=== PATIENT | male | born 1955 | race Caucasian/White ===

== ENCOUNTER 2020-03-14 08:23 | Emergency (ER) | payer BC, OTHER ==
[2020-03-14] MEDS ORDERED: METHYLPREDNISOLONE 125 MG INJ ONE (08:33)
[2020-03-14] MEDS ORDERED: NA CHLORIDE 0.9% 1,000 ML ONE (08:34)
[2020-03-14] MEDS ORDERED: FAMOTIDINE 20 MG/2 ML VIAL IV ONE (08:34)
[2020-03-14] MEDS ORDERED: ONDANSETRON 4 MG/2 ML VIAL ONE (08:35)
[2020-03-14 08:48] LABS: Absolute Lymphocytes (CBC) 3.8 K/uL (0.7-4.9); Basophils % 0.5 % (0-1.3); Hematocrit 44.2 % (39.6-49.0); Lymphocytes % 63.5 % (15.3-44.8); RBC Red Blood Cell Count 4.59 M/uL (4.33-5.43)
[2020-03-14 08:49] LABS: Protime INR 1.03
[2020-03-14 09:04] LABS: Albumin 3.4 g/dL (3.4-5.0); Bilirubin Direct 0.2 mg/dL (0-0.2); Bilirubin Total 0.7 mg/dL (0.2-1.0); Potassium 3.9 mmol/L (3.5-5.1); Protein, Total 6.9 g/dL (6.4-8.2)
[2020-03-14 09:59] LABS: Blood Morphology Comment NOT SEEN (NOT SEEN); Platelet Estimate ADEQ
--- NOTE | 2020-03-14 11:15 | RAD REPORT ---
EXAM DESCRIPTION: RAD - Chest Single View - 03/14/2020 8:37 am CLINICAL HISTORY: Allergic Reaction, shortness of breath COMPARISON: Portable November 2012 TECHNIQUE: AP portable chest image was obtained 03/14/2020 8:37 am . FINDINGS: No pulmonary edema or acute lung parenchymal process. Lung volumes are low which accentuat es interstitial pattern. Heart and vasculature are normal. No measurable pleural effusion and no pneu mothorax. No acute bony abnormality seen. No acute aortic findings suspected. IMPRESSION: No acute cardiopulmonary process. No substantial change from comparison.
--- NOTE | 2020-03-14 12:44 | ER ---
Nurse's Notes [facility] Name: Robert Key Age: 64 yrs Sex: Male : 1955 Arrival Date: 03/14/2020 Time: 08:27 Bed 2 Private MD: Diagnosis: Insect bite (nonvenomous) of right hand;Allergic Reaction;Hypotension Presentation: 03/14 08:27 Chief complaint: Patient states: was stung by a black wasp around 0745 today, gave sv himself an Epinephrine injection immediately after. c/o dizziness. Coronavirus screen: Proceed with normal triage. Patient denies a cough. Patient denies shortness of breath or difficulty breathing. Patient denies measured and/or subjective temperature greater than 100.4F prior to today's visit. Patient denies travel on a cruise ship or to a country the [facility] currently lists as an affected area. Patient denies contact with known and/or suspected case of COVID-19. Ebola Screen: No symptoms or risks identified at this time. Onset: The symptoms/episode began/occurred suddenly, 45 minute(s) ago. Anaphylaxis evaluation, blurry vision. Initial Sepsis Screen: Does the patient meet any 2 criteria? HR > 90 bpm. No. Patient's initial sepsis screen is negative. Does the patient have a suspected source of infection? No. Patient's initial sepsis screen is negative. Risk Assessment: Do you want to hurt yourself or someone else? Patient reports no desire to harm self or others. Onset of symptoms was March 14, 2020 at 07:45. 08:27 Method Of Arrival: Wheelchair sv 08:27 Acuity: JULIO CESAR 2 sv Triage Assessment: 08:27 General: Appears in no apparent distress. uncomfortable, well groomed, well developed, sv Behavior is calm, cooperative, appropriate for age. Pain: Complains of pain in right hand Pain began 1 hour ago. Is continuous. Neuro: Level of Consciousness is awake, alert, obeys commands, Oriented to person, place, time, situation, Moves all extremities. Full function. Respiratory: Respiratory effort is even, unlabored, Respiratory pattern is regular, symmetrical. Derm: Skin is pink, warm \T\ dry. Injury Description: Bite sustained to right middle finger caused by a wasp, was sustained 30-60 minutes ago. 08:27 EENT: Sclera/Cornea are reddened in right eye and left eye. sv Historical: - Allergies: 08:53 insects; sv 08:53 NKDA; sv - PMHx: 08:53 Hypertension; RA; GERD; sv - PSHx: 08:53 left foot; right thumb; sv - Immunization history:: Adult Immunizations up to date. - Social history:: Smoking status: . Screenin:30 Abuse screen: Denies threats or abuse. Denies injuries from another. Nutritional sv screening: No deficits noted. Tuberculosis screening: No symptoms or risk factors identified. Fall Risk None identified. Assessment: 08:30 Reassessment: Patient appears in no apparent distress at this time. Patient and/or sv family updated on plan of care and expected duration. Pain level reassessed. Patient is alert, oriented x 3, equal unlabored respirations, skin warm/dry/pink. Pt reports that he can see normal at this time. Patient states feeling better. Patient states symptoms have improved. 09:11 Reassessment: Patient appears in no apparent distress at this time. Patient and/or sv family updated on plan of care and expected duration. Pain level reassessed. Patient is alert, oriented x 3, equal unlabored respirations, skin warm/dry/pink. Patient states feeling better. Patient states symptoms have improved. 09:57 Reassessment: Patient appears in no apparent distress at this time. Pt appears to be sv sleeping at this time. Will continue to monitor. 10:47 Reassessment: Patient appears in no apparent distress at this time. Patient and/or sv family updated on plan of care and expected duration. Pain level reassessed. Patient is alert, oriented x 3, equal unlabored respirations, skin warm/dry/pink. Pt given a cup of water. Patient states feeling better. Patient states symptoms have improved. 13:04 Reassessment: Patient appears in no apparent distress at this time. Patient and/or sv family updated on plan of care and expected duration. Pain level reassessed. Patient is alert, oriented x 3, equal unlabored respirations, skin warm/dry/pink. Patient denies pain at this time. Patient states feeling better. Patient states symptoms have improved. Vital Signs: 08:27 BP 91 / 53; Pulse 100; Resp 17; Temp 98; Pulse Ox 87% on R/A; sv 08:30 BP 140 / 78; Pulse 89; Resp 16; Pulse Ox 94% on 2 lpm NC; sv 09:10 BP 152 / 97; Pulse 69; Resp 13; Pulse Ox 98% on 2 lpm NC; sv 09:30 BP 142 / 90; Pulse 72; Resp 15; Pulse Ox 97% ; sv 10:30 BP 131 / 81; Pulse 71; Resp 16; Pulse Ox 96% on R/A; sv 11:30 BP 135 / 84; Pulse 72; Resp 18; Pulse Ox 95% on R/A; sv 12:15 BP 141 / 89; Pulse 73; Resp 18; Pulse Ox 96% on R/A; sv 08:27 Pt placed on O2 \T\ 2L per NC. O2 sat up to 97%. sv ED Course: 08:27 Patient arrived in ED. em1 08:27 Doni Alberto NP is PHCP. pm1 08:27 Fermin Bardales MD is Attending Physician. pm1 08:30 Inserted saline lock: 20 gauge in right antecubital area, using aseptic technique. sv Blood collected. Flushed right antecubital with 5 ml normal saline. 08:30 Patient has correct armband on for positive identification. Bed in low position. Call sv light in reach. court recording monitor on. Pulse ox on. NIBP on. Door closed. Warm blanket given. Head of bed elevated. 08:35 EKG done, by ED staff, reviewed by Doni Alberto NP. dh3 08:35 Arm band placed on. sv 08:37 XRAY Chest (1 view) In Process Unspecified. EDMS 08:41 Amira Gordon, RN is Primary Nurse. sv 08:52 Triage completed. sv 13:04 No provider procedures requiring assistance completed. IV discontinued, intact, sv bleeding controlled, No redness/swelling at site. Pressure dressing applied. 13:05 Awaiting transportation. sv Administered Medications: 08:30 Drug: NS 0.9% 1000 ml Route: IV; Rate: 1000 ml; Site: right antecubital; sv 09:30 Follow up: Response: No adverse reaction; IV Status: Completed infusion; IV Intake: sv 1000ml 08:30 Drug: Zofran (Ondansetron) 4 mg Route: IVP; Site: right antecubital; sv 09:00 Follow up: Response: No adverse reaction sv 08:35 Drug: Pepcid 20 mg Route: IVP; Site: right antecubital; sv 09:00 Follow up: Response: No adverse reaction sv 08:37 Drug: SOLU-Medrol 125 mg Route: IVP; Site: right antecubital; sv 09:00 Follow up: Response: No adverse reaction sv Intake: 09:30 IV: 1000ml; Total: 1000ml. sv Outcome: 12:44 Discharge ordered by MD. pm1 13:04 Discharged to home ambulatory. sv 13:04 Condition: stable 13:04 Discharge instructions given to patient, Instructed on discharge instructions, follow up and referral plans. medication usage, Demonstrated understanding of instructions, follow-up care, medications, Prescriptions given X 3. 13:57 Patient left the ED. sv Signatures: Dispatcher [employer] Amira Washburn RN RN sv Martinez, Eric em1 Doni Alberto NP DURABILITY ENGINEER pm1 Tita Zamora 3
--- NOTE | 2020-03-14 12:44 | EDPHYS ---
Physician Documentation [facility] Name: Robert Key Age: 64 yrs Sex: Male : 1955 Arrival Date: 03/14/2020 Time: 08:27 Bed 2 Private MD: ED Physician Fermin Bardales HPI: 03/14 08:31 This 64 yrs old Male presents to ER via Wheelchair with complaints of pm1 Allergic Reaction, Insect Bite. 08:31 The patient presents with dizziness, itching, right hand pain where bitten by wasp. pm1 Onset: The symptoms/episode began/occurred just prior to arrival, at 07:45. Associated signs and symptoms: Pertinent negatives: abdominal pain, chest pain, headache, nausea, shortness of breath, vomiting. Possible causes: wasp. At home the patient or guardian has treated the symptoms with EpiPen, Benadryl x 2 tabs. Severity of symptoms: in the emergency department the symptoms have improved. The patient has experienced similar episodes in the past, Has had anaphylaxis from insect bites in the past. Patient bitten to right hand by black wasp at 0745. Patient took his EpiPen immediately and two Benadryl tabs. Historical: - Allergies: 08:53 insects; sv 08:53 NKDA; sv - PMHx: 08:53 Hypertension; RA; GERD; sv - PSHx: 08:53 left foot; right thumb; sv - Immunization history:: Adult Immunizations up to date. - Social history:: Smoking status: . ROS: 08:55 Constitutional: Negative for fever, chills, and weight loss, Eyes: Negative for injury, pm1 pain, redness, and discharge, ENT: Negative for injury, pain, and discharge, Neck: Negative for injury, pain, and swelling, Cardiovascular: Negative for chest pain, palpitations, and edema, Respiratory: Negative for shortness of breath, cough, wheezing, and pleuritic chest pain. 08:55 Abdomen/GI: Negative for abdominal pain, nausea, vomiting, diarrhea, and constipation, Back: Negative for injury and pain. 08:55 MS/extremity: Positive for pain, swelling, of the right hand. 08:55 Skin: Positive for itching, Negative for abscesses, cellulitis. 08:55 Neuro: Positive for dizziness, Negative for numbness, tingling, weakness. Exam: 08:55 Constitutional: This is a well developed, well nourished patient who is awake, alert, pm1 and in no acute distress. Head/Face: Normocephalic, atraumatic. 08:55 Chest/axilla: Normal chest wall appearance and motion. Nontender with no deformity. No lesions are appreciated. 08:55 Abdomen/GI: Soft, non-tender. No guarding or rebound. No evidence of tenderness throughout. Back: No spinal tenderness. No costovertebral tenderness. Full range of motion. 08:55 Eyes: Periorbital structures: appear normal, Pupils: no acute changes, Extraocular movements: no acute changes, Conjunctiva: injected, bilaterally, Lids and lashes: appear normal, bilaterally. 08:55 ENT: Mouth: is normal, no acute changes, Posterior pharynx: is normal, no acute changes. 08:55 Cardiovascular: Rate: normal, Rhythm: regular, Pulses: no pulse deficits are appreciated, Edema: is not appreciated. 08:55 Respiratory: Exam negative for acute changes, respiratory distress, shortness of breath, tachypnea. 08:55 Skin: Appearance: normal except for affected area, mild redness and swelling to dorsum of right hand. 08:55 Neuro: Exam negative for acute changes, Orientation: is normal, Mentation: is normal, Motor: is normal, moves all fours, Sensation: is normal, no obvious gross deficits. Vital Signs: 08:27 BP 91 / 53; Pulse 100; Resp 17; Temp 98; Pulse Ox 87% on R/A; sv 08:30 BP 140 / 78; Pulse 89; Resp 16; Pulse Ox 94% on 2 lpm NC; sv 09:10 BP 152 / 97; Pulse 69; Resp 13; Pulse Ox 98% on 2 lpm NC; sv 09:30 BP 142 / 90; Pulse 72; Resp 15; Pulse Ox 97% ; sv 10:30 BP 131 / 81; Pulse 71; Resp 16; Pulse Ox 96% on R/A; sv 11:30 BP 135 / 84; Pulse 72; Resp 18; Pulse Ox 95% on R/A; sv 12:15 BP 141 / 89; Pulse 73; Resp 18; Pulse Ox 96% on R/A; sv 08:27 Pt placed on O2 \T\ 2L per NC. O2 sat up to 97%. sv MDM: 08:27 Patient medically screened. pm1 09:01 Data reviewed: vital signs. pm1 12:42 Counseling: I had a detailed discussion with the patient and/or guardian regarding: the pm1 historical points, exam findings, and any diagnostic results supporting the discharge/admit diagnosis, lab results, radiology results, the need for outpatient follow up, an allergy/transitional living specialist, to return to the emergency department if symptoms worsen or persist or if there are any questions or concerns that arise at home. ED course: Patient bored without any symptoms and ready to go home. 03/14 08:30 Order name: PT-INR; Complete Time: 09:13 pm1 03/14 08:30 Order name: Basic Metabolic Panel; Complete Time: 09:10 pm03/14 08:30 Order name: CBC with Diff; Complete Time: 10:04 pm1 03/14 08:30 Order name: LFT's; Complete Time: 09:10 pm1 03/14 08:30 Order name: XRAY Chest (1 view); Complete Time: 11:33 pm1 03/14 09:59 Order name: Manual Differential; Complete Time: 10:04 EDMS 03/14 08:30 Order name: EKG; Complete Time: 08:31 pm1 03/14 08:30 Order name: Cardiac monitoring; Complete Time: 08:35 pm03/14 08:30 Order name: EKG - Nurse/Tech; Complete Time: 08:35 pm03/14 08:30 Order name: IV Saline Lock; Complete Time: 08:35 pm1 03/14 08:30 Order name: Labs collected and sent; Complete Time: 08:46 pm03/14 08:30 Order name: O2 Per Protocol; Complete Time: 08:35 pm03/14 08:30 Order name: O2 Sat Monitoring; Complete Time: 08:35 pm1 Administered Medications: 08:30 Drug: NS 0.9% 1000 ml Route: IV; Rate: 1000 ml; Site: right antecubital; sv 09:30 Follow up: Response: No adverse reaction; IV Status: Completed infusion; IV Intake: sv 1000ml 08:30 Drug: Zofran (Ondansetron) 4 mg Route: IVP; Site: right antecubital; sv 09:00 Follow up: Response: No adverse reaction sv 08:35 Drug: Pepcid 20 mg Route: IVP; Site: right antecubital; sv 09:00 Follow up: Response: No adverse reaction sv 08:37 Drug: SOLU-Medrol 125 mg Route: IVP; Site: right antecubital; sv 09:00 Follow up: Response: No adverse reaction sv Disposition: 03/14/20 12:44 Discharged to Home. Impression: Insect bite (nonvenomous) of right hand, Allergic Reaction, Hypotension. - Condition is Stable. - Discharge Instructions: Insect Bite, Epinephrine Injection. - Prescriptions for Pepcid 20 mg Oral Tablet - take 1 tablet by ORAL route every 12 hours for 10 days; 20 tablet. EpiPen 0.3 mg Injection auto- injector - inject 1 pen by INTRAMUSCULAR route as directed As needed Inject into the outer portion of the thigh, through clothing if necessary. Indicated in the emergency treatment of allergic reactions; 1 unit. Prednisone 20 mg Oral Tablet - take 3 tablet by ORAL route once daily for 5 days; 15 tablet. - Medication Reconciliation Form, Thank You Letter, Antibiotic Education, Prescription Opioid Use form. - Follow up: Emergency Department; When: As needed; Reason: Worsening of condition. Follow up: Private Physician; When: 2 - 3 days; Reason: Recheck today's complaints, Continuance of care, Re-evaluation by your physician. - Problem is new. - Symptoms have improved. Signatures: Dispatcher [employer] Amira Washburn RN RN Doni White, MULTIGRAPH OPERATOR MULTIGRAPH OPERATOR pm1 Corrections: (The following items were deleted from the chart) 12:45 12:44 03/14/2020 12:44 Discharged to Home. Impression: Insect bite (nonvenomous) of pm1 right hand. Condition is Stable. Forms are Medication Reconciliation Form, Thank You Letter, Antibiotic Education, Prescription Opioid Use. Follow up: Emergency Department; When: As needed; Reason: Worsening of condition. Follow up: Private Physician; When: 2 - 3 days; Reason: Recheck today's complaints, Continuance of care, Re-evaluation by your physician. Problem is new. Symptoms have improved. pm1 13:57 12:45 03/14/2020 12:44 Discharged to Home. Impression: Insect bite (nonvenomous) of sv right hand; Allergic Reaction; Hypotension. Condition is Stable. Forms are Medication Reconciliation Form, Thank You Letter, Antibiotic Education, Prescription Opioid Use. Follow up: Emergency Department; When: As needed; Reason: Worsening of condition. Follow up: Private Physician; When: 2 - 3 days; Reason: Recheck today's complaints, Continuance of care, Re-evaluation by your physician. Problem is new. Symptoms have improved. pm1
[2020-03-14 14:04] VITALS: TEMP 98
[2020-03-14 14:13] VITALS: BP 141/89; O2SAT 96
--- NOTE | 2020-03-15 08:54 | EKG ---
Test Date: 2020-03-14 Test Time: 08:30:22 [employer] Patrol Officer: SHIVA MEASUREMENT RESULTS: Intervals: Rate: 89 AK: 156 QRSD: 94 QT: 384 QTc: 467 [place]: P: 45 AK: 156 QRS: 3 T: 43 INTERPRETIVE STATEMENTS: Normal sinus rhythm Nonspecific ST abnormality Abnormal ECG Compared to ECG 11/11/2015 19:11:43 ST (T wave) deviation now present Electronically Signed On 03-15-20 08:52:45 CDT by Dae Gonzales
== END 2020-03-14 13:57 | disposition home or self-care (01) ==
LOC: ER 08:23
DX: S60.561A Insect bite (nonvenomous) of right hand, initial encounter (principal); T78.49XA Other allergy, initial encounter; X58.XXXA Exposure to other specified factors, initial encounter; I95.9 Hypotension, unspecified
CPT/HCPCS: 96361; 93005; 85025; 80048; 36415; 85610; 80076; 71045; 96375; 96374; 99285; J7030; J2930; J2405

== ENCOUNTER 2022-03-06 09:01 | Emergency (ER) | payer BC ==
[2022-03-06] MEDS ORDERED: ONDANSETRON 4 MG/2 ML VIAL ONE (09:20)
[2022-03-06] MEDS ORDERED: dexAMETHasone 10 MG/ML VIAL ONE (09:20)
[2022-03-06] MEDS ORDERED: FAMOTIDINE 20 MG/2 ML VIAL IV ONE (09:20)
[2022-03-06] MEDS ORDERED: NA CHLORIDE 0.9% 1,000 ML ONE (09:20)
--- NOTE | 2022-03-06 14:03 | ER ---
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 Coronavirus screen: Vaccine status: Patient reports receiving the 2nd dose of the covid vaccine. Ebola Screen: No symptoms or risks identified at this time. Onset: The symptoms/episode began/occurred acutely. Anaphylaxis evaluation, no signs or symptoms of anaphylaxis were noted. Initial Sepsis Screen: Does the patient meet any 2 criteria? No. Patient's initial sepsis screen is negative. Does the patient have a suspected source of infection? No. Patient's initial sepsis screen is negative. Risk Assessment: Do you want to hurt yourself or someone else? Patient reports no desire to harm self or others. Onset of symptoms was March 06, 2022. 09:06 Method Of Arrival: Ambulatory ph 09:06 Acuity: JULIO CESAR 3 ph Triage Assessment: 09:09 General: Appears in no apparent distress. comfortable, Behavior is calm, cooperative, ph appropriate for age. Pain: Denies pain. Neuro: Level of Consciousness is awake, alert, obeys commands, Oriented to person, place, time, situation. Cardiovascular: Capillary refill < 3 seconds in bilateral fingers Patient's skin is warm and dry. Respiratory: Airway is patent Respiratory effort is even, unlabored, Denies shortness of breath. GI: No signs and/or symptoms were reported involving the gastrointestinal system. Derm: Skin is healthy with good turgor, Skin is pink, warm \T\ dry. Musculoskeletal: Circulation, motion, and sensation intact. Range of motion: intact in all extremities. Injury Description: Bite sustained to dorsal aspect of middle phalanx of right ring finger caused by a wasp, is from insect. Historical: - Allergies: 09:08 Insects; ph 09:08 NKDA; ph - PMHx: 09:08 Hypertension; GERD; RA; ph - Immunization history:: Adult Immunizations up to date. - Social history:: Smoking status: Patient denies any tobacco usage or history of. Screenin:44 Abuse screen: Denies threats or abuse. Denies injuries from another. Nutritional ph screening: No deficits noted. Tuberculosis screening: No symptoms or risk factors identified. Fall Risk None identified. Assessment: 09:45 General: SEE TRIAGE ASSESSMENT. ph 10:43 Reassessment: Patient appears in no apparent distress at this time. Patient and/or ph family updated on plan of care and expected duration. Pain level reassessed. Patient is alert, oriented x 3, equal unlabored respirations, skin warm/dry/pink. 12:00 Reassessment: Patient appears in no apparent distress at this time. Patient and/or ph family updated on plan of care and expected duration. Pain level reassessed. Patient is alert, oriented x 3, equal unlabored respirations, skin warm/dry/pink. 13:18 Reassessment: Patient appears in no apparent distress at this time. Patient and/or ph family updated on plan of care and expected duration. Pain level reassessed. Patient is alert, oriented x 3, equal unlabored respirations, skin warm/dry/pink. 14:16 Reassessment: Patient appears in no apparent distress at this time. Patient and/or ph family updated on plan of care and expected duration. Pain level reassessed. Patient is alert, oriented x 3, equal unlabored respirations, skin warm/dry/pink. Vital Signs: 09:06 BP 123 / 67; Pulse 87; Resp 19; Temp 97.9; Pulse Ox 96% on R/A; Weight 99.79 kg; Height ph 5 ft. 9 in. (175.26 cm); 09:50 BP 127 / 73; Pulse 71; Resp 18; Pulse Ox 95% on R/A; ph 10:43 BP 127 / 78; Pulse 72; Resp 18; Pulse Ox 95% on R/A; ph 12:00 BP 129 / 80; Pulse 67; Resp 18; Pulse Ox 97% on R/A; ph 13:16 BP 142 / 83; Pulse 69; Resp 18; Pulse Ox 96% on R/A; ph 09:06 Body Mass Index 32.49 (99.79 kg, 175.26 cm) ph ED Course: 09:03 Patient arrived in ED. ds1 09:03 Troy Gatica PA is PHCP. diane 09:03 Vik Min MD is Attending Physician. diane 09:05 Inserted saline lock: 20 gauge in right forearm, using aseptic technique. ph 09:06 Sera Deal, RN is Primary Nurse. ph 09:08 Triage completed. 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 13:18 Patient has correct armband on for positive identification. Bed in low position. Call ph light in reach. Side rails up X 1. Client placed on continuous cardiac and pulse oximetry monitoring. NIBP monitoring applied. 14:14 No provider procedures requiring assistance completed. IV discontinued, intact, ph bleeding controlled, No redness/swelling at site. Pressure dressing applied. Administered Medications: 09:23 Drug: NS 0.9% 1000 ml Route: IV; Rate: 1 bolus; Site: right forearm; ph 14:15 Follow up: Response: No adverse reaction; IV Status: Completed infusion; IV Intake: ph 1000ml 14:15 Follow up: Response: No adverse reaction; IV Status: Completed infusion ph 09:24 Drug: Zofran (Ondansetron) 4 mg Route: IVP; Site: right forearm; ph 14:15 Follow up: Response: No adverse reaction ph 09:26 Drug: Pepcid (famotidine) 20 mg Route: IVP; Site: right forearm; ph 14:15 Follow up: Response: No adverse reaction ph 09:28 Drug: Decadron - Dexamethasone 10 mg Route: IVP; Site: right forearm; ph 14:14 Follow up: Response: No adverse reaction ph Medication: 13:18 VIS not applicable for this client. ph Intake: 14:15 IV: 1000ml; Total: 1000ml. ph Outcome: 14:03 Discharge ordered by . diane 14:14 Discharged to home ambulatory, with significant other. ph 14:14 Condition: good 14:14 Discharge instructions given to patient, Instructed on discharge instructions, follow up and referral plans. medication usage, Demonstrated understanding of instructions, follow-up care, medications, Prescriptions given X 2. 14:16 Patient left the ED. ph Signatures: Troy Gatica PA PA Katerin Rodriguez ds1 Sera Deal, RN RN ph
--- NOTE | 2022-03-06 14:03 | EDPHYS ---
Physician Documentation [facility] Name: Robert Key Age: 66 yrs Sex: Male : 1955 Arrival Date: 03/06/2022 Time: 09:03 Bed 3 Private MD: ED Physician Vik Min HPI: 03/06 09:03 This 66 yrs old Male presents to ER via Ambulatory with complaints of Allergic Reaction.jmm 09:03 The patient presents with localized swelling. Onset: The symptoms/episode jmm began/occurred gradually. Associated signs and symptoms: Pertinent positives: swelling. Possible causes: wasp. This is a 66-year-old male with a history of hypertension, rheumatoid arthritis the presents emerged part with complaints of swelling to his hand and face. This occurred after being stung by a wasp. Patient states he administered his EpiPen. Denies any shortness of breath or swelling to the throat.. Historical: - Allergies: 09:08 Insects; ph 09:08 NKDA; ph - PMHx: 09:08 Hypertension; GERD; RA; ph - Immunization history:: Adult Immunizations up to date. - Social history:: Smoking status: Patient denies any tobacco usage or history of. ROS: 09:03 Constitutional: Negative for fever, chills, and weight loss, Eyes: Negative for injury, jmm pain, redness, and discharge. 09:03 ENT: Negative for injury, pain, and discharge, Respiratory: Negative for shortness of breath, cough, wheezing, and pleuritic chest pain, Abdomen/GI: Negative for abdominal pain, nausea, vomiting, diarrhea, and constipation. 09:03 ENT: Positive for 09:03 Skin: Positive for swelling. 09:03 All other systems are negative. Exam: 09:03 Constitutional: This is a well developed, well nourished patient who is awake, alert, jmm and in no acute distress. Head/Face: atraumatic. Eyes: EOMI, no conjunctival erythema appreciated 09:03 Neck: Trachea midline, Supple Chest/axilla: Normal chest wall appearance and motion. Cardiovascular: Regular rate and rhythm. No edema appreciated Respiratory: Normal respirations, no respiratory distress appreciated Abdomen/GI: Non distended, soft Back: Normal ROM Skin: General appearance color normal MS/ Extremity: Moves all extremities, no obvious deformities appreciated, no edema noted to the lower extremities Neuro: Awake and alert Psych: Behavior is normal, Mood is normal, Patient is cooperative and pleasant 09:03 ENT: Posterior pharynx: is normal, No edema noted. Vital Signs: 09:06 BP 123 / 67; Pulse 87; Resp 19; Temp 97.9; Pulse Ox 96% on R/A; Weight 99.79 kg; Height ph 5 ft. 9 in. (175.26 cm); 09:50 BP 127 / 73; Pulse 71; Resp 18; Pulse Ox 95% on R/A; ph 10:43 BP 127 / 78; Pulse 72; Resp 18; Pulse Ox 95% on R/A; ph 12:00 BP 129 / 80; Pulse 67; Resp 18; Pulse Ox 97% on R/A; ph 13:16 BP 142 / 83; Pulse 69; Resp 18; Pulse Ox 96% on R/A; ph 09:06 Body Mass Index 32.49 (99.79 kg, 175.26 cm) ph MDM: 09:03 Patient medically screened. [facility] 14:02 Data reviewed: vital signs, nurses notes. Counseling: I had a detailed discussion with diane the patient and/or guardian regarding: the historical points, exam findings, and any diagnostic results supporting the discharge/admit diagnosis, the need for outpatient follow up, to return to the emergency department if symptoms worsen or persist or if there are any questions or concerns that arise at home. 03/06 09:04 Order name: Saline Lock; Complete Time: 09:12 [facility] Administered Medications: 09:23 Drug: NS 0.9% 1000 ml Route: IV; Rate: 1 bolus; Site: right forearm; ph 14:15 Follow up: Response: No adverse reaction; IV Status: Completed infusion; IV Intake: ph 1000ml 14:15 Follow up: Response: No adverse reaction; IV Status: Completed infusion ph 09:24 Drug: Zofran (Ondansetron) 4 mg Route: IVP; Site: right forearm; ph 14:15 Follow up: Response: No adverse reaction ph 09:26 Drug: Pepcid (famotidine) 20 mg Route: IVP; Site: right forearm; ph 14:15 Follow up: Response: No adverse reaction ph 09:28 Drug: Decadron - Dexamethasone 10 mg Route: IVP; Site: right forearm; ph 14:14 Follow up: Response: No adverse reaction ph Disposition Summary: 03/06/22 14:03 Discharge Ordered Location: Home [facility] Condition: Stable [facility] Diagnosis - Insect envenomation [facility] Followup: [facility] - With: Private Physician - When: 2 - 3 days - Reason: Recheck today's complaints, Continuance of care, Re-evaluation by your physician Discharge Instructions: - Discharge Summary Sheet [facility] - Bee, Wasp, or Hornet Sting, Adult [facility] Forms: - Medication Reconciliation Form [facility] - Thank You Letter [facility] - Antibiotic Education [facility] - Prescription Opioid Use [facility] Prescriptions: - Hydroxyzine HCl 25 mg Oral Tablet - take 1 tablet by ORAL route every 6 hours As needed; 30 tablet; Refills: 0, [facility] Product Selection Permitted - Prednisone 20 mg Oral Tablet - take 3 tablets by ORAL route once daily for 5 days; 15 tablet; Refills: 0, [facility] Product Selection Permitted Signatures: Troy Gatica PA PA jmm Hall, Patricia, RN RN ph
[2022-03-06 14:24] VITALS: TEMP 97.9
[2022-03-06 14:29] VITALS: BP 142/83; O2SAT 96
== END 2022-03-06 14:16 | disposition home or self-care (01) ==
LOC: ER 09:01
DX: S60.464A Insect bite (nonvenomous) of right ring finger, initial encounter (principal); T63.461A Toxic effect of venom of wasps, accidental (unintentional), initial encounter; Y92.017 Garden or yard in single-family (private) house as the place of occurrence of the external cause; Z91.038 Other insect allergy status; I10 Essential (primary) hypertension; K21.9 Gastro-esophageal reflux disease without esophagitis; M06.9 Rheumatoid arthritis, unspecified
CPT/HCPCS: J1100; J7030; J2405; J3490; 96361; 96374; 96375; 99284

== ENCOUNTER 2022-03-09 11:31 | Emergency (ER) | payer BC ==
[2022-03-09] MEDS ORDERED: dexAMETHasone 10 MG/ML VIAL ONE (12:28)
[2022-03-09] MEDS ORDERED: ONDANSETRON 4 MG/2 ML VIAL ONE (12:28)
[2022-03-09] MEDS ORDERED: FAMOTIDINE 20 MG/2 ML VIAL IV ONE (12:29)
--- NOTE | 2022-03-09 13:00 | EDPHYS ---
[facility]ation [facility] Name: Robert Key Age: 66 yrs Sex: Male : 1955 Arrival Date: 03/09/2022 Time: 11:33 Bed Treatment Private MD: ED Physician Vik Min HPI: 03/09 11:40 This 66 yrs old Male presents to ER via Ambulatory with complaints of Bee Sting, jh7 Allergic Reaction. 11:40 Onset: The symptoms/episode began/occurred just prior to arrival. Patient presents for 7 multiple bee stings to his right hand. The patient states that he is highly allergic to any insect bites, and is concerned about his allergic reaction progressing. States he was here Sunday for the same thing, and still has some prednisone at home.. Historical: - Allergies: 11:37 Insects; iw 11:37 NKDA; iw - PMHx: 11:37 GERD; Hypertension; RA; iw ROS: 11:40 Constitutional: Negative for fever, chills, and weight loss, ENT: Negative for injury, jh7 pain, and discharge, Cardiovascular: Negative for chest pain, palpitations, and edema, Respiratory: Negative for shortness of breath, cough, wheezing, and pleuritic chest pain, Abdomen/GI: Negative for abdominal pain, nausea, vomiting, diarrhea, and constipation, Skin: Negative for injury, rash, and discoloration, Neuro: Negative for headache, weakness, numbness, tingling, and seizure. 11:40 Skin: Positive for erythema, swelling, Negative for abrasions, abscesses, laceration(s), lesions. 11:40 All other systems are negative. Exam: 11:40 Constitutional: This is a well developed, well nourished patient who is awake, alert, jh7 and in no acute distress. ENT: Nares patent. No nasal discharge, no septal abnormalities noted. Tympanic membranes are normal and external auditory canals are clear. Oropharynx with no redness, swelling, or masses, exudates, or evidence of obstruction, uvula midline. Mucous membranes moist. Neck: Trachea midline, no thyromegaly or masses palpated, and no cervical lymphadenopathy. Supple, full range of motion without nuchal rigidity, or vertebral point tenderness. No Meningismus. Cardiovascular: Regular rate and rhythm with a normal S1 and S2. No gallops, murmurs, or rubs. Normal PMI, no JVD. No pulse deficits. Respiratory: Lungs have equal breath sounds bilaterally, clear to auscultation and percussion. No rales, rhonchi or wheezes noted. No increased work of breathing, no retractions or nasal flaring. Back: No spinal tenderness. No costovertebral tenderness. Full range of motion. Neuro: Awake and alert, GCS 15, oriented to person, place, time, and situation. Sensory grossly intact. Normal gait. 11:40 Skin: Bee stings present on right fourth and fifth fingers with no drainage, significant swelling, or tenderness to palpation.. Vital Signs: 11:36 BP 147 / 91; Pulse 68; Resp 16; Temp 98.6; Pulse Ox 100% on R/A; iw 12:57 BP 139 / 90; Pulse 72; Resp 18; Pulse Ox 100% on R/A; ld1 MDM: 11:40 Differential diagnosis: Allergic reaction, insect sting. Data reviewed: vital signs, [facility] nurses notes. Data interpreted: Pulse oximetry: is 100 %. Interpretation: normal. ED course: The patient symptoms resolved after medication administration. He remained stable throughout his ER visit. He still has some leftover prednisone from his last visit, and will continue to use at home. If symptoms return, or if he develops any new concerning symptoms, he will return to the ER immediately. Patient understood the plan of care.. 11:54 Patient medically screened. [facility] 13:00 Counseling: I had a detailed discussion with the patient and/or guardian regarding: the [facility] historical points, exam findings, and any diagnostic results supporting the discharge/admit diagnosis, to return to the emergency department if symptoms worsen or persist or if there are any questions or concerns that arise at home. Administered Medications: 12:29 Drug: Decadron - Dexamethasone 10 mg Route: IVP; Site: left antecubital; iw 12:45 Follow up: Response: No adverse reaction iw 12:29 Drug: Pepcid (famotidine) 20 mg Route: IVP; Site: left antecubital; iw 13:00 Follow up: Response: No adverse reaction iw 12:29 Drug: Zofran (Ondansetron) 4 mg Route: IVP; Site: left antecubital; iw 13:00 Follow up: Response: No adverse reaction iw Disposition Summary: 05/19/22 13:00 Discharge Ordered Location: Home [facility] Problem: new [facility] Symptoms: have improved [facility] Condition: Stable [facility] Diagnosis - Insect bite (nonvenomous) of fingers [facility] - Allergic urticaria [facility] Followup: [facility] - With: Private Physician - When: 2 - 3 days - Reason: Recheck today's complaints Discharge Instructions: - Discharge Summary Sheet [facility] - Hives 7 - Angioedema [facility] Forms: - Medication Reconciliation Form [facility] - Thank You Letter [facility] Signatures: Danielle Chu RN RN iw Bridget Smith, CARI BROOKSP [facility] Corrections: (The following items were deleted from the chart) 16:31 16:29 Skin: Bee stings present on right fourth and fifth fingers with no drainage, [facility] significant swelling, or tenderness to palpation.. [facility] 16:31 16:29 Constitutional: This is a well developed, well nourished patient who is awake, [facility] alert, and in no acute distress. ENT: Nares patent. No nasal discharge, no septal abnormalities noted. Tympanic membranes are normal and external auditory canals are clear. Oropharynx with no redness, swelling, or masses, exudates, or evidence of obstruction, uvula midline. Mucous membranes moist. Neck: Trachea midline, no thyromegaly or masses palpated, and no cervical lymphadenopathy. Supple, full range of motion without nuchal rigidity, or vertebral point tenderness. No Meningismus. Cardiovascular: Regular rate and rhythm with a normal S1 and S2. No gallops, murmurs, or rubs. Normal PMI, no JVD. No pulse deficits. Respiratory: Lungs have equal breath sounds bilaterally, clear to auscultation and percussion. No rales, rhonchi or wheezes noted. No increased work of breathing, no retractions or nasal flaring. Back: No spinal tenderness. No costovertebral tenderness. Full range of motion. Neuro: Awake and alert, GCS 15, oriented to person, place, time, and situation. Sensory grossly intact. Normal gait. [facility] 16:33 11:40 Counseling: I had a detailed discussion with the patient and/or guardian [facility] regarding: the historical points, exam findings, and any diagnostic results supporting the discharge/admit diagnosis, to return to the emergency department if symptoms worsen or persist or if there are any questions or concerns that arise at home, jh7
--- NOTE | 2022-03-09 13:00 | ER ---
Nurse's Notes [facility] Name: Robert Key Age: 66 yrs Sex: Male : 1955 Arrival Date: 03/09/2022 Time: 11:33 Bed Treatment Private MD: Diagnosis: Insect bite (nonvenomous) of fingers;Allergic urticaria Presentation: 03/09 11:36 Chief complaint: Patient states: got stung by a bee on his right hand around 11 today iw and gave himself an injection with epi pen, was seen here Sunday for same reason , now c/o dizziness and feeling a little flush. Coronavirus screen: At this time, the client does not indicate any symptoms associated with coronavirus-19. Ebola Screen: Patient negative for fever greater than or equal to 101.5 degrees Fahrenheit, and additional compatible Ebola Virus Disease symptoms Patient denies exposure to infectious person. Patient denies travel to an Ebola-affected area in the 21 days before illness onset. No symptoms or risks identified at this time. Onset: The symptoms/episode began/occurred 30 minute(s) ago. Anaphylaxis evaluation, no signs or symptoms of anaphylaxis were noted. Initial Sepsis Screen: Does the patient meet any 2 criteria? No. Patient's initial sepsis screen is negative. Does the patient have a suspected source of infection? No. Patient's initial sepsis screen is negative. Risk Assessment: Do you want to hurt yourself or someone else? Patient reports no desire to harm self or others. Onset of symptoms was March 09, 2022. 11:36 Method Of Arrival: Ambulatory iw 11:36 Acuity: JULIO CESAR 3 iw Triage Assessment: 12:00 General: Behavior is calm, cooperative. iw 13:31 General: Appears in no apparent distress. iw Historical: - Allergies: 11:37 Insects; iw 11:37 NKDA; iw - PMHx: 11:37 GERD; Hypertension; RA; iw Screenin:57 Abuse screen: Denies threats or abuse. Denies injuries from another. Nutritional ld1 screening: No deficits noted. Tuberculosis screening: No symptoms or risk factors identified. Fall Risk None identified. Assessment: 12:57 Reassessment: See triage assessment. Pain: Denies pain. Respiratory: Airway is patent ld1 Respiratory effort is even, unlabored, Breath sounds are clear bilaterally. 13:30 Reassessment: Patient appears in no apparent distress at this time. Patient and/or iw family updated on plan of care and expected duration. Pain level reassessed. Patient is alert, oriented x 3, equal unlabored respirations, skin warm/dry/pink. Vital Signs: 11:36 BP 147 / 91; Pulse 68; Resp 16; Temp 98.6; Pulse Ox 100% on R/A; iw 12:57 BP 139 / 90; Pulse 72; Resp 18; Pulse Ox 100% on R/A; ld1 ED Course: 11:33 Patient arrived in ED. as 11:37 Triage completed. iw 11:43 Bridget Smith FNP is [facility] 11:43 Vik Min MD is Attending Physician. [facility] 12:15 Danielle Chu, RN is Primary Nurse. iw 12:57 Patient has correct armband on for positive identification. Bed in low position. Call ld1 light in reach. Side rails up X2. youth nutritional monitor on. Pulse ox on. NIBP on. Door closed. Noise minimized. Warm blanket given. 12:57 No provider procedures requiring assistance completed. Inserted saline lock: 22 gauge ld1 in left antecubital area, using aseptic technique. 13:30 IV discontinued, intact, bleeding controlled, No redness/swelling at site. Pressure iw dressing applied. Administered Medications: 12:29 Drug: Decadron - Dexamethasone 10 mg Route: IVP; Site: left antecubital; iw 12:45 Follow up: Response: No adverse reaction iw 12:29 Drug: Pepcid (famotidine) 20 mg Route: IVP; Site: left antecubital; iw 13:00 Follow up: Response: No adverse reaction iw 12:29 Drug: Zofran (Ondansetron) 4 mg Route: IVP; Site: left antecubital; iw 13:00 Follow up: Response: No adverse reaction iw Medication: 12:57 VIS not applicable for this client. ld1 Outcome: 13:00 Discharge ordered by . [facility] 13:31 Discharged to home ambulatory. iw 13:31 Condition: good 13:31 Discharge instructions given to patient, Instructed on discharge instructions, follow up and referral plans. Demonstrated understanding of instructions, follow-up care, medications. 13:31 Patient left the ED. iw Signatures: Santiago, LaurieDanielle Ward, RN RN iw Natalie Uribe RN RN ld1 Bridget Smith, CHANGE PERSON CHANGE PERSON jh7
[2022-03-09 14:02] VITALS: TEMP 98.6; O2SAT 100
[2022-03-09 14:04] VITALS: BP 139/90
== END 2022-03-09 13:31 | disposition home or self-care (01) ==
LOC: ER 11:31
DX: S60.466A Insect bite (nonvenomous) of right little finger, initial encounter (principal); L50.0 Allergic urticaria; S60.361A Insect bite (nonvenomous) of right thumb, initial encounter; I10 Essential (primary) hypertension; Z91.038 Other insect allergy status
CPT/HCPCS: 96375; 96374; 99284; J1100; J2405; J3490

== ENCOUNTER 2024-04-12 12:32 | Emergency (ER) | payer MEDICAID ==
[2024-04-12 13:23] LABS: Absolute Basophils 0.1 K/uL (0-0.5); Absolute Eosinophils 0.2 K/uL (0-0.5); Absolute Lymphocytes (CBC) 2.5 K/uL (0.7-4.9); Absolute Monocytes 1.2 K/uL (0.1-1.3); Absolute Neutrophil 4.1 K/uL (1.8-8.0); Basophils % 1.2 % (0-1.3); Hematocrit 33.4 % (39.6-49.0); Hemoglobin 11.8 g/dL (13.6-17.9); Lymphocytes % 31.2 % (15.3-44.8); MCH 34.3 pg (27.0-35.0); MCHC 35.3 g/dL (32.0-36.0); MCV 97.3 fL (80-100); MPV 6.9 fL (7.6-11.3); Monocytes % 14.6 % (3.3-12.3); Nucleated Red Blood Cells % 0.1 % (0-0); Platelets 263 thou/uL (152-406); RBC Red Blood Cell Count 3.43 M/uL (4.33-5.43)
[2024-04-12 13:42] LABS: Albumin 2.7 g/dL (3.4-5.0); Albumin/Globulin Ratio 0.6 (1.1-1.8); Anion Gap 6.2 mEq/L (5.0-15.0); Bilirubin Total 0.6 mg/dL (0.2-1.0); Globulin 4.2 g/dL (2.3-3.5); Potassium 3.2 mEq/L (3.5-5.1); Protein, Total 6.9 g/dL (6.4-8.2)
--- NOTE | 2024-04-12 15:13 | RAD REPORT ---
EXAM DESCRIPTION: CT - Abdomen Pelvis W Contrast - 04/12/2024 2:20 pm CLINICAL HISTORY: rectal bleeding history of UC COMPARISON: No comparisons TECHNIQUE: Thin cut axial CT imaging of the abdomen and pelvis was performed following intravenous a dministration of iodinated contrast. Multiplanar reformats were generated and reviewed. All CT scans are performed using dose optimization technique as appropriate and may include automated exposure control or mA/KV adjustment according to patient size. FINDINGS: No suspicious findings in the lung bases. The liver shows diffuse parenchymal hypoattenuation suggesting steatosis. Adrenal glands, spleen, and pancreas show no suspicious findings. Gallbladder and biliary tree are also without suspicious findi ng. Symmetric renal function is seen with no hydronephrosis or suspicious renal mass. Moderate hiatal hernia. No dilated bowel loops. Colonic diverticulosis. Proximal ascending colon foca l inflammatory changes with fat stranding around an inflamed diverticulum. No extraluminal gas or flu id collections. No free air or free fluid. No hernia, mass or bulky lymphadenopathy. The urinary blad manolo is without significant finding. No suspicious bony findings. IMPRESSION: Findings of proximal descending colon acute diverticulitis, without evidence of complica tions. Diffuse hepatic steatosis. The findings were communicated to on 04/12/2024 at 15:08 hours.
--- NOTE | 2024-04-12 15:39 | EDPHYS ---
Physician Documentation [facility] Name: Robert eKy Age: 68 yrs Sex: Male : 1955 Arrival Date: 04/12/2024 Time: 12:32 Bed 20 Private MD: ED Physician Sai Grijalva HPI: 04/12 15:58 This 68 yrs old Male presents to ER via Ambulatory with complaints of Bloody Stools - rt diarrhea. 15:58 Patient presents to the ED with 2 episodes of bloody stools. Patient had diarrhea rt yesterday with bright red blood. States that a more formed stool today with bright red blood. Denies any pain, straining. Denies nausea, vomiting. Denies other acute complaints, symptoms are moderate in severity, no other aggravating or alleviating factors.. Historical: - Allergies: 12:48 NKDA; db - PMHx: 12:48 GERD; Hypertensive disorder; Hypertension; RA; db - PSHx: 12:48 foot-right and left; db - Immunization history:: Adult Immunizations unknown. - Infectious Disease History:: Denies. - Social history:: Smoking status: Patient denies any tobacco usage or history of. - Family history:: not pertinent. ROS: 15:58 Constitutional: Negative for fever, chills, and weight loss, Cardiovascular: Negative rt for chest pain, palpitations, and edema, Respiratory: Negative for shortness of breath, cough, wheezing, and pleuritic chest pain, MS/Extremity: Negative for injury and deformity, Skin: Negative for injury, rash, and discoloration, Neuro: Negative for headache, weakness, numbness, tingling, and seizure, 15:58 Abdomen/GI: Positive for rectal bleeding, Negative for abdominal pain, nausea and vomiting, Exam: 15:58 Constitutional: This is a well developed, well nourished patient who is awake, alert, rt and in no acute distress. Head/Face: Normocephalic, atraumatic. Chest/axilla: Normal chest wall appearance and motion. Nontender with no deformity. No lesions are appreciated. Cardiovascular: Regular rate and rhythm with a normal S1 and S2. No gallops, murmurs, or rubs. Normal PMI, no JVD. No pulse deficits. Respiratory: Lungs have equal breath sounds bilaterally, clear to auscultation and percussion. No rales, rhonchi or wheezes noted. No increased work of breathing, no retractions or nasal flaring. Abdomen/GI: Soft, non-tender, with normal bowel sounds. No distension or tympany. No guarding or rebound. No evidence of tenderness throughout. Skin: Warm, dry with normal turgor. Normal color with no rashes, no lesions, and no evidence of cellulitis. MS/ Extremity: Pulses equal, no cyanosis. Neurovascular intact. Full, normal range of motion. Neuro: Awake and alert, GCS 15, oriented to person, place, time, and situation. Cranial nerves II-XII grossly intact. Motor strength 5/5 in all extremities. Sensory grossly intact. Cerebellar exam normal. Normal gait. Vital Signs: 12:47 BP 122 / 71; Pulse 70; Resp 18; Temp 97.7; Pulse Ox 98% ; Weight 92.99 kg; Height 5 ft. db 7 in. ; 13:54 BP 121 / 71; Pulse 65; Resp 18; Pulse Ox 99% ; nj1 15:03 BP 130 / 79; Pulse 63; Resp 17; Pulse Ox 99% ; nj1 16:09 BP 129 / 78; Pulse 64; Resp 18; Pulse Ox 98% ; nj1 12:47 Body Mass Index 32.11 (92.99 kg, 170.18 cm) db MDM: 12:53 Patient medically screened. rt 15:58 Differential Diagnosis Diverticulitis, ulcerative colitis, colitis. Data reviewed: rt vital signs, nurses notes. Consideration of Admission/Observation Escalation of care including admission/observation considered. Patient with stable vital signs, normal H\T\H. Diverticulitis, uncomplicated seen on CT scan. Patient has no pain, nausea, is p.o. tolerant. Patient is comfortable discharge. Will treat patient with antibiotics as an outpatient, strict return precautions were discussed. There is no melena, coffee-ground emesis to suggest upper GI bleed. Care significantly affected by the following chronic conditions: Ulcerative colitis. Counseling: I had a detailed discussion with the patient and/or guardian regarding the historical points, exam findings, and any diagnostic results supporting the discharge/admit diagnosis, lab results, radiology results, the need for outpatient follow up, to return to the emergency department if symptoms worsen or persist or if there are any questions or concerns that arise at home. Response to treatment: the patient's symptoms have markedly improved after treatment. 04/12 13:02 Order name: CBC with Diff; Complete Time: 13:55 rt 04/12 13:02 Order name: CMP; Complete Time: 13:55 rt 04/12 13:02 Order name: Lipase; Complete Time: 13:55 rt 04/12 13:02 Order name: CT Abd/Pelvis - IV Contrast Only; Complete Time: 15:15 rt 04/12 13:02 Order name: IV Saline Lock; Complete Time: 13:15 rt 04/12 13:02 Order name: Labs collected and sent; Complete Time: 13:15 rt Administered Medications: 16:01 Drug: Amoxicillin-Clavulanate PO 875 mg PO once Route: PO; nj1 Disposition Summary: 04/12/24 15:38 Discharge Ordered Notes: Location: Home rt Problem: new rt Symptoms: are unchanged rt Condition: Stable rt Diagnosis - Uncomplicated diverticulitis rt Followup: rt - With: Private Physician - When: 5 - 6 days - Reason: Discharge Instructions: - Discharge Summary Sheet rt - Diverticulitis rt Forms: - Medication Reconciliation Form rt - Antibiotic Education rt - Prescription Opioid Use rt - Patient Portal Instructions rt - Leadership Thank You Letter rt Prescriptions: - Augmentin 875-125 mg Oral Tablet - take 1 tablet ORAL route every 12 hours for 10 days; 20 tablet; Refills: 0, rt Product Selection Permitted Signatures: Dispatcher [employer] Vanessa Hester RN RN Sai Goodrich MD MD rt Hyun Matos RN RN nj1 Corrections: (The following items were deleted from the chart) 12:48 12:48 Allergies: Insects; edmund shaffer
--- NOTE | 2024-04-12 15:39 | ER ---
Nurse's Notes [facility] Name: Robert Key Age: 68 yrs Sex: Male : 1955 Arrival Date: 04/12/2024 Time: 12:32 Bed 20 Private MD: Diagnosis: Uncomplicated diverticulitis Presentation: 04/12 12:47 Chief complaint: Patient states: BLOODY DIARRHEA STARTED LAST NIGHT AT 11 PM. STATES 3 db EPISODES OF DIARRHEA. Coronavirus screen: Client denies travel out of the [place] in the last 14 days. At this time, the client does not indicate any symptoms associated with coronavirus-19. Ebola Screen: Patient negative for fever greater than or equal to 101.5 degrees Fahrenheit, and additional compatible Ebola Virus Disease symptoms Patient denies exposure to infectious person. Patient denies travel to an Ebola-affected area in the 21 days before illness onset. No symptoms or risks identified at this time. Initial Sepsis Screen: Does the patient meet any 2 criteria? No. Patient's initial sepsis screen is negative. Does the patient have a suspected source of infection? No. Patient's initial sepsis screen is negative. Risk Assessment: Do you want to hurt yourself or someone else? Patient reports no desire to harm self or others. Onset of symptoms was April 12, 2024. 12:47 Method Of Arrival: Ambulatory db 12:47 Acuity: JULIO CESAR 3 db Triage Assessment: 12:48 General: Appears in no apparent distress. comfortable, Behavior is calm, cooperative. db Pain: Denies pain. Neuro: Level of Consciousness is awake, alert, obeys commands, Oriented to person, place, time, situation, Speech is normal. GI: Reports diarrhea, bloody stool. Historical: - Allergies: 12:48 NKDA; db - PMHx: 12:48 GERD; Hypertensive disorder; Hypertension; RA; db - PSHx: 12:48 foot-right and left; db - Immunization history:: Adult Immunizations unknown. - Infectious Disease History:: Denies. - Social history:: Smoking status: Patient denies any tobacco usage or history of. - Family history:: not pertinent. Screenin:20 [facility] ED Fall Risk Assessment (Adult) History of falling in the last 3 months, nj1 including since admission No falls in past 3 months (0 pts) Confusion or Disorientation No (0 pts) Intoxicated or Sedated No (0 pts) Impaired Gait No (0 pts) Mobility Assist Device Used No (0 pt) Altered Elimination No (0 pt) Score/Fall Risk Level 0 - 2 = Low Risk Oriented to surroundings, Maintained a safe environment, Hourly rounding (assess needs \T\ fall precautionary measures) done. 13:20 Abuse screen: Denies threats or abuse. Denies injuries from another. Nutritional nj1 screening: No deficits noted. Tuberculosis screening: No symptoms or risk factors identified. Assessment: 13:20 General: Appears in no apparent distress. comfortable, Behavior is calm, cooperative, nj1 appropriate for age. 13:20 Pain: Denies pain. Neuro: Level of Consciousness is awake, alert, obeys commands, nj1 Oriented to person, place, time, situation. Cardiovascular: Patient's skin is warm and dry. Respiratory: Airway is patent Respiratory effort is even, unlabored. GI: Reports diarrhea, bloody stool. 13:54 Reassessment: Patient appears in no apparent distress at this time. Patient and/or nj1 family updated on plan of care and expected duration. Pain level reassessed. Patient is alert, oriented x 3, equal unlabored respirations, skin warm/dry/pink. 15:03 Reassessment: Patient appears in no apparent distress at this time. Patient and/or nj1 family updated on plan of care and expected duration. Pain level reassessed. Patient is alert, oriented x 3, equal unlabored respirations, skin warm/dry/pink. 16:10 Reassessment: Patient appears in no apparent distress at this time. Patient is alert, nj1 oriented x 3, equal unlabored respirations, skin warm/dry/pink. Vital Signs: 12:47 BP 122 / 71; Pulse 70; Resp 18; Temp 97.7; Pulse Ox 98% ; Weight 92.99 kg; Height 5 ft. db 7 in. ; 13:54 BP 121 / 71; Pulse 65; Resp 18; Pulse Ox 99% ; nj1 15:03 BP 130 / 79; Pulse 63; Resp 17; Pulse Ox 99% ; nj1 16:09 BP 129 / 78; Pulse 64; Resp 18; Pulse Ox 98% ; nj1 12:47 Body Mass Index 32.11 (92.99 kg, 170.18 cm) db ED Course: 12:35 Patient arrived in ED. im 12:42 Sai Grijalva MD is Attending Physician. rt 12:48 Triage completed. db 12:48 Arm band placed on Patient placed in an exam room. db 13:15 CBC with Diff Sent. bc6 13:15 CMP Sent. bc6 13:15 Lipase Sent. bc6 13:15 Initial lab(s) drawn, by me, sent to lab. Inserted saline lock: 20 gauge in right bc6 antecubital area, using aseptic technique. Blood collected. 13:18 Hyun Matos, RN is Primary Nurse. nj1 13:52 Patient has correct armband on for positive identification. Bed in low position. Call nj1 light in reach. Provided Education on: call light, fall precautions. 14:22 CT Abd/Pelvis - IV Contrast Only In Process Unspecified. EDMS 16:10 No provider procedures requiring assistance completed. IV discontinued, intact, nj1 bleeding controlled, Pressure dressing applied. Administered Medications: 16:01 Drug: Amoxicillin-Clavulanate PO 875 mg PO once Route: PO; nj1 Medication: 16:10 VIS not applicable for this client. nj1 Outcome: 15:38 Discharge ordered by MD. rt 16:10 Discharged to home ambulatory, with significant other, nj1 16:10 Condition: stable 16:10 Discharge instructions given to patient, Instructed on discharge instructions, follow up and referral plans. medication usage, Demonstrated understanding of instructions, follow-up care, medications, Prescriptions given X 1, 16:10 Patient left the ED. nj1 Signatures: Dispatcher [employer] EDMS Vanessa Sylvester RN RN db Sai Girjalva MD MD rt [facility] Hyun Matos, ARTHUR RN nj1 Annie Brewer im Corrections: (The following items were deleted from the chart) 12:48 12:48 Allergies: Insects; db db 15:05 15:03 Pulse 63bpm; Resp 17bpm; Pulse Ox 99%; nj1 nj1
[2024-04-12] MEDS ORDERED: AMOX/K CLAV 875 MG TAB ONE (15:59)
[2024-04-12 16:16] VITALS: TEMP 97.7; O2SAT 98
[2024-04-12 16:31] VITALS: BP 129/78
== END 2024-04-12 16:10 | disposition home or self-care (01) ==
LOC: ER 12:32
DX: K57.32 Diverticulitis of large intestine without perforation or abscess without bleeding (principal)
CPT/HCPCS: 85025; 36415; 83690; 80053; 74177; 99284; Q9967

== ENCOUNTER 2024-04-14 09:21 | Emergency (ER) | payer MEDICAID ==
--- OUTSIDE RECORDS SUMMARY | 2024-04-14 09:27 | XMS REPORT | Continuity of Care Document ---
Author Name Unknown Address [address] [facility] [address] [place] [address] [facility] Address [address] [facility] 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 Role Phone ZELALEM GASTON Attending Clinician Unavailable FREDA NICHOLSON Attending Clinician Unava MELLISA Veliz Attending Clinician Unavailable VF45 Attending Clinician Unavailable DINO ZAMUDIO Attending Clinician Unavailable AISHWARYA LORENZ Attending Clinician Unavailable TIKA WHARTON Attending Clinician Unavail able LUCITA VELAZQUEZ Attending Clinician Unavailable MARIA ELENA ENRIQUEZ Attending Clinician Unavailable LAB47 Attending Clinician Unavailable RADHA THOMAS Attending Clinician Unavailable LAB90 Attending Clinician Unavailable GISELE ZEPEDA Attending Clinician Unavailable EASTON ROSS Attending Clinician Unavailable RADIOLOGY, DEPT Attending Clinician Unavailable ZAYNAB SANTOS Attending Clinician Unavailable TRED45 Attending Clinician Unavailable BECKI DIOR Attending Clinician Unavailable NICOLASA DOUGHERTY Attending Clinician Unavailable [facility] Attending Clinician UnavailREGIS Murphy Attending Clinician Unavailable VF2 Attending Clinician Unavailable TOMOGRAPHY, [facility] Attending Cl inician Unavailable LAB59 Attending Clinician Unavailable GUILLAUME VAZQUEZ Attending Clinician Unavailable JUDITH URIBE Attending Clinician Unavailable ALYSSA PARKS Attending Clinician Unavailab le TESTING, [facility] TRI GASTELUM Attending Clinicia debra Unavailable LAB45 Attending Clinician Unavailable DEVAN REYES Attending Clinician Unavailable Cynthia Santizo NP Attending Clinician [phone] Yamilka Rand MD Attending Clinician [phone] Laisha Mccabe MD Attending Clinician [phone] CYNTHIA SANTIZO Attending Clinician Unavailable Edionwe MD, [facility] Admitting Clinician Payers Payer Name Policy Type Policy Number Effective Date Expirati on Date Source [employer] [facility] 7 [id number] 2022 00:00:00 Problems Condition Name Condition Details Condition Category Status Onset Date Resolution Date Last Treatment Date Treating Clinician Comments Source Nail discolorat ion Nail discolorat ion Disease Active 5- 00:00: 00 Wen Seybold - Externa l Ulcerative colitis without complicati ons, unspecifie d location (multi HCC) Ulcerative colitis without complicati ons, unspecifie d location (multi HCC) Disease Active - 00:00: 00 Wen Seybold - Externa l History of ulcerative colitis History of ulcerative colitis Disease Active 2-20 00:00: 00 Wen Seybold - Externa l Rheumatoid arthritis (multi HCC) Rheumatoid arthritis (multi HCC) Disease Active - 00:00: 00 Wen Seybold - Externa l Primary hypertensi on Primary hypertensi on Disease Active 11-02 00:00: 00 Wen Seybold - Externa l 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) 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) Disease Active 11-02 00:00: 00 Wen Seybold - Externa l Hypotensio n Hypotensio n Disease Active 4-03 00:00: 00 [facility] HTN (hypertens ion) HTN (hypertens ion) Disease Active 2013-10 00:00: 00 [facility] Long-term use of immunosupp ressant medication Long-term use of immunosupp ressant medication Disease Active 2013-10 00:00: 00 [facility] Rheumatoid arthritis, adult Rheumatoid arthritis, adult Disease Active 2013-10 00:00: 00 [facility] Ulcerative colitis Ulcerative colitis Disease Active 11-03 00:00: 00 [facility] Vitamin D deficiency Vitamin D deficiency Disease Active 11-03 00:00: 00 [facility] Allergies, Adverse Reactions, Alerts Allergy Name Allergy Type Status Severity Reaction(s) Onset Date Inactive Date Treating Clinician Comments Source NO KNOWN ALLERGIE S Drug Class Active [facility] Social History Social Habit Start Date Stop Date Quantity Comments Source Exposure to SARS-CoV-2 (event) Not sure [facility] Gender identity Ariadna Myrick - External Sexual orientation Dionicio Myrick - External Alcoholic beverage intake 2024-03-14 00:00:00 2024-03-14 00:00:00 .29 /d Wen Hawkold - External Alcohol intake 2024-01-04 00:00:00 2024-01-04 00:00:00 .29 /d Wen Hawkold - External Alcohol Comment 2023-10-19 00:00:00 2023-10-19 00:00:00 daily Wen Myrick - External History of Social function 2023-07-12 00:00:00 2023-07-12 00:00:00 Wen Myrick - External Tobacco use and exposure 2022-11-02 00:00:00 2022-11-02 00:00:00 Smokeless tobacco non-user Wen Ramez - External Sex assigned at 1955 00:00:00 1955 00:00:00 Wen Myrick - External Smoking Status Start Date Stop Date Source Never smoked tobacco Wenchristopher Myrick - External Unknown if ever smoked [facility] Medications Ordered Medication Name Filled Medication Name Start Date Stop Date Current Medication? Ordering Clinician Indication Dosage Frequency Signature (SIG) Comments Components Source Potassium Gluconate 550 MG oral Tablet 04-12 10:23: 43 Yes 1{tbl} Take 1 tablet by mouth daily Wen auguste Zinc 50 MG oral Tablet 04-12 10:23: 43 Yes 1{tbl} Take 1 tablet by mouth daily Wen auguste Cholecalcif demetria-Vitami n C (VITAMIN D3-VITAMIN C OR) 04-12 10:23: 43 Yes 1{tbl} Take 1 tablet by mouth daily Wen auguste Aspirin 81 MG oral Tablet Delayed Response 2024-0 6-22 10:23: 43 Yes 81mg Take 1 tablet (81 mg total) by mouth daily. Wen auguste Carvedilol 3.125 MG oral Tablet 03-19 00:00: 00 Yes [id number] 3.125mg Take 1 tablet (3.125 mg total) by mouth in the morning and 1 tablet (3.125 mg total) in the evening. Take with meals. Wen auguste Sulfasalazi ne 500 MG oral Tablet 02-26 00:00: 00 Yes [id number] 500mg Take 1 tablet (500 mg total) by mouth 2 times daily. Wen auguste Hydroxychlo roquine Sulfate 200 MG oral Tablet 02-26 00:00: 00 Yes [id number] 300mg Take 1.5 tablets (300 mg total) by mouth daily. Wen auguste Ammonium Lactate 12 % apply externally Lotion 02-26 00:00: 00 Yes [id number] 1{appli cation} Apply 1 Applicatio n topically 2 times daily. Wen auguste Potassium Gluconate 550 MG oral Tablet 01-13 08:58: 51 Yes 1{tbl} Take 1 tablet by mouth daily Wen auguste Zinc 50 MG oral Tablet 01-13 08:58: 51 Yes 1{tbl} Take 1 tablet by mouth daily Wen auguste FIBER OR 01-13 08:58: 51 Yes 1{capsu le} Take 1 capsule by mouth daily Wen auguste Aspirin 81 MG oral Tablet Delayed Response 01-13 08:58: 51 Yes 81mg Take 1 tablet (81 mg total) by mouth daily. Wen auguste Pantoprazol e Sodium 40 MG oral Tablet Delayed Response 01-12 00:00: 00 Yes 40mg Take 1 tablet (40 mg total) by mouth daily. Wen auguste Carvedilol 3.125 MG oral Tablet 12-16 00:00: 00 Yes [id number] TAKE ONE (1) TABLET(S) BY MOUTH TWICE A DAY (MORNING AND EVENING) WITH MEALS. Wen auguste Potassium Gluconate 550 MG oral Tablet 11-29 09:57: 32 Yes 1{tbl} Take 1 tablet by mouth daily Wen auguste Zinc 50 MG oral Tablet 11-29 09:57: 32 Yes 1{tbl} Take 1 tablet by mouth daily Wen auguste FIBER OR 11-29 09:57: 32 Yes 1{capsu le} Take 1 capsule by mouth daily Wen auguste Aspirin 81 MG oral Tablet Delayed Response 11-29 09:57: 32 Yes 81mg Take 1 tablet (81 mg total) by mouth daily. Wen auguste Potassium Gluconate 550 MG oral Tablet 11-07 10:31: 04 Yes 1{tbl} Take 1 tablet by mouth daily Wen auguste Zinc 50 MG oral Tablet 11-07 10:31: 04 Yes 1{tbl} Take 1 tablet by mouth daily Wen auguste FIBER OR 11-07 10:31: 04 Yes 1{capsu le} Take 1 capsule by mouth daily Wen auguste Aspirin 81 MG oral Tablet Delayed Response 11-07 10:31: 04 Yes 81mg Take 1 tablet (81 mg total) by mouth daily. Wen auguste Hydroxychlo roquine Sulfate 200 MG oral Tablet 11-07 00:00: 00 02-26 00:00 :00 No [id number] 300mg Take 1.5 tablets (300 mg total) by mouth daily. Wen auguste Sulfasalazi ne 500 MG oral Tablet 11-07 00:00: 00 02-26 00:00 :00 No [id number] 9109 500mg Take 1 tablet (500 mg total) by mouth 2 times daily. Wen auguste Potassium Gluconate 550 MG oral Tablet 10-23 13:56: 30 Yes 1{tbl} Take 1 tablet by mouth daily Wen auguste Zinc 50 MG oral Tablet 10-23 13:56: 30 Yes 1{tbl} Take 1 tablet by mouth daily Wen Yap l FIBER OR 10-23 13:56: 08 Yes 1{capsu le} Take 1 capsule by mouth daily Wen auguste Aspirin 81 MG oral Tablet Delayed Response 10-23 13:56: 08 Yes 81mg Take 1 tablet (81 mg total) by mouth daily. Wen auguste Potassium Gluconate 550 MG oral Tablet 2022-10 08:22: 14 Yes 1{tbl} Take 1 tablet by mouth daily Wen auguste Zinc 50 MG oral Tablet 2022-10 08:22: 14 Yes 1{tbl} Take 1 tablet by mouth daily Wen auguste FIBER OR 2022-10 08:22: 14 Yes 1{capsu le} Take 1 capsule by mouth daily Wen auguste Aspirin 81 MG oral Tablet Delayed Response 2022-10 08:21: 06 Yes 81mg Take 1 tablet (81 mg total) by mouth daily. Wen auguste methylPREDN ISolone 4 MG oral Tablet Therapy Pack 2022-10 00:00: 00 Yes [id number] 1{destinee} Take 1 destinee by mouth See Admin Instructio ns Use as directed. Wen auguste Benzonatate (Tessalon Perles) 100 MG oral Capsule 2022-10 00:00: 00 Yes [id number] 100mg [id number] 3D Take 1 capsule (100 mg total) by mouth 3 times daily as needed for cough. Wen auguste Losartan Potassium (COZAAR) 100 MG oral Tablet 2022-10 00:00: 00 Yes [id number] 100mg TAKE ONE (1) TABLET(S) BY MOUTH DAILY. Wen auguste Carvedilol 3.125 MG oral Tablet 2022-10 00:00: 00 Yes [id number] 3.125mg Take 1 tablet (3.125 mg total) by mouth in the morning and 1 tablet (3.125 mg total) in the evening. Take with meals. Wen auguste Amlodipine Besylate (NORVASC) 5 MG oral Tablet 2022-10 00:00: 00 Yes [id number] 5mg TAKE ONE (1) TABLET(S) BY MOUTH DAILY. Wen auguste Potassium Gluconate 550 MG oral Tablet 2022-10 14:27: 27 Yes 1{tbl} Take 1 tablet by mouth daily Wen Yap l Zinc 50 MG oral Tablet 2022-10 14:27: 27 Yes 1{tbl} Take 1 tablet by mouth daily Wen Yap l FIBER OR 2022-10 14:27: 27 Yes 1{capsu le} Take 1 capsule by mouth daily Wen auguste Aspirin 81 MG oral Tablet Delayed Response 2022-10 14:27: 27 Yes 81mg Take 1 tablet (81 mg total) by mouth daily. Wen auguste Potassium Gluconate 550 MG oral Tablet 07-12 15:44: 57 Yes 1{tbl} Take 1 tablet by mouth daily Wen auguste Zinc 50 MG oral Tablet 07-12 15:44: 57 Yes 1{tbl} Take 1 tablet by mouth daily Wen Feltona l FIBER OR 07-12 15:44: 57 Yes 1{capsu le} Take 1 capsule by mouth daily Wen auguste Aspirin 81 MG oral Tablet Delayed Response 07-12 15:44: 57 Yes 81mg Take 1 tablet (81 mg total) by mouth daily. Wen auguste predniSONE (DELTASONE) 10 MG oral tablet 07-12 00:00: 00 07-23 04:59 :00 No [id number] Take 1 tablet (10 mg total) by mouth 2 times daily for 5 days, THEN 1 tablet (10 mg total) daily for 5 days. Wen auguste Potassium Gluconate 550 MG oral Tablet 07-04 13:34: 08 Yes 1{tbl} Take 1 tablet by mouth daily Wen auguste Zinc 50 MG oral Tablet 07-04 13:34: 08 Yes 1{tbl} Take 1 tablet by mouth daily Wen auguste FIBER OR 07-04 13:34: 08 Yes 1{capsu le} Take 1 capsule by mouth daily Wen auguste Aspirin 81 MG oral Tablet Delayed Response 07-04 13:34: 08 Yes 81mg Take 1 tablet (81 mg total) by mouth daily. Wen auguste Sulfasalazi ne 500 MG oral Tablet 07-04 10:30: 13 07-04 00:00 :00 No 500mg Take 1 tablet (500 mg total) by mouth 2 times daily. Wen auguste Adalimumab (Humira Pen) 40 MG/0.8ML subcutaneou s Pen-injecto r Kit 07-04 10:29: 02 07-04 00:00 :00 No 40mg Inject 40 mg into the skin once a week. Wen auguste Potassium Gluconate 550 MG oral Tablet 07-04 09:49: 48 Yes 1{tbl} Take 1 tablet by mouth daily Wen auguste Zinc 50 MG oral Tablet 07-04 09:49: 48 Yes 1{tbl} Take 1 tablet by mouth daily Wen auguste FIBER OR 07-04 09:49: 48 Yes 1{capsu le} Take 1 capsule by mouth daily Wen auguste Aspirin 81 MG oral Tablet Delayed Response 07-04 09:49: 48 Yes 81mg Take 1 tablet (81 mg total) by mouth daily. Wen auguste Hydroxychlo roquine Sulfate 200 MG oral Tablet 07-04 00:00: 00 11-07 00:00 :00 No [id number] 300mg Take 1.5 tablets (300 mg total) by mouth daily. Wen auguste Sulfasalazi ne 500 MG oral Tablet 07-04 00:00: 00 11-07 00:00 :00 No [id number] 9109 500mg Take 1 tablet (500 mg total) by mouth 2 times daily. Wen auguste Carvedilol 3.125 MG oral Tablet 06-13 00:00: 00 Yes [id number] 3.125mg Take 1 tablet (3.125 mg total) by mouth in the morning and 1 tablet (3.125 mg total) in the evening. Take with meals. Wen auguste Potassium Gluconate 550 MG oral Tablet 02-28 09:39: 04 Yes 1{tbl} Take 1 tablet by mouth daily Wen auguste Zinc 50 MG oral Tablet 02-28 09:39: 04 Yes 1{tbl} Take 1 tablet by mouth daily Wen auguste FIBER OR 02-28 09:39: 04 Yes 1{capsu le} Take 1 capsule by mouth daily Wen auguste Adalimumab (Humira Pen) 40 MG/0.8ML subcutaneou s Pen-injecto r Kit 02-28 09:39: 04 Yes 40mg Inject 40 mg into the skin once a week Wen auguste Aspirin 81 MG oral Tablet Delayed Response 02-28 09:39: 04 Yes 81mg Take 1 tablet (81 mg total) by mouth daily Wen auguste Sulfasalazi ne 500 MG oral Tablet 02-28 09:39: 04 Yes 500mg Take 1 tablet (500 mg total) by mouth 2 times daily Wen auguste Hydroxychlo roquine Sulfate 200 MG oral Tablet 02-28 00:00: 00 Yes [id number] 200mg Take 1 tablet (200 mg total) by mouth 2 times daily Wen auguste Potassium Gluconate 550 MG oral Tablet 01-16 11:43: 07 Yes 1{tbl} Take 1 tablet by mouth daily Wen auguste Zinc 50 MG oral Tablet 01-16 11:43: 07 Yes 1{tbl} Take 1 tablet by mouth daily Wen auguste FIBER OR 01-16 11:43: 07 Yes 1{capsu le} Take 1 capsule by mouth daily Wen auguste Adalimumab (Humira Pen) 40 MG/0.8ML subcutaneou s Pen-injecto r Kit 01-16 11:43: 07 Yes 40mg Inject 40 mg into the skin once a week Wen auguste Aspirin 81 MG oral Tablet Delayed Response 01-16 11:43: 07 Yes 81mg Take 81 mg by mouth daily Wen auguste Sulfasalazi ne 500 MG oral Tablet 01-16 11:43: 07 Yes 500mg Take 500 mg by mouth 2 times daily Wen auguste Carvedilol 3.125 MG oral Tablet 12-29 00:00: 00 Yes [id number] 3.125mg Take 1 tablet (3.125 mg total) by mouth in the morning and 1 tablet (3.125 mg total) in the evening. Take with meals. Wen auguste Amlodipine Besylate (NORVASC) 5 MG oral Tablet 12-29 00:00: 00 Yes [id number] 5mg Take 1 tablet (5 mg total) by mouth daily Wen auguste Losartan Potassium (COZAAR) 100 MG oral Tablet 12-29 00:00: 00 Yes [id number] 100mg Take 1 tablet (100 mg total) by mouth daily Wen auguste methylPREDN ISolone 4 MG oral Tablet Therapy Pack 12-29 00:00 00 01-16 00:00 :00 No [id number] 1{destinee} Take 1 destinee by mouth See Admin Instructio ns Use as directed Wen auguste Pseudoeph-B romphen-DM (Bromfed DM) 30-2-10 MG/5ML oral Syrup 12-29 00:00: 00 01-16 00:00 :00 No [id number] 10mL Q.25D Take 10 mL by mouth 4 times daily as needed Wen auguste Azithromyci n 250 MG oral Tablet 12-22 00:00: 00 01-16 00:00 :00 No Take 2 pills on day one and then 1 pill po daily for next 4 days Wen auguste Losartan Potassium 100 MG oral Tablet 12-21 09:08: 40 Yes 100mg Take 100 mg by mouth daily Wen auguste Carvedilol 3.125 MG oral Tablet 12-21 09:08: 40 Yes 3.125mg Take 3.125 mg by mouth in the morning and 3.125 mg in the evening. Take with meals. Wen auguste Amlodipine Besylate 5 MG oral Tablet 12-21 09:08: 40 Yes 5mg Take 5 mg by mouth daily Wen auguste Potassium Gluconate 550 MG oral Tablet 12-21 09:08: 40 Yes 1{tbl} Take 1 tablet by mouth daily Wen auguste Zinc 50 MG oral Tablet 12-21 09:08: 40 Yes 1{tbl} Take 1 tablet by mouth daily Wen auguste FIBER OR 12-21 09:08: 40 Yes 1{capsu le} Take 1 capsule by mouth daily Wen auguste Adalimumab (Humira Pen) 40 MG/0.8ML subcutaneou s Pen-injecto r Kit 12-21 09:08: 40 Yes 40mg Inject 40 mg into the skin once a week Wen auguste Aspirin 81 MG oral Tablet Delayed Response 12-21 09:08: 40 Yes 81mg Take 81 mg by mouth daily Wen auguste Sulfasalazi ne 500 MG oral Tablet 12-21 09:08: 40 Yes 500mg Take 500 mg by mouth 2 times daily Wen auguste FLUTICASONE PROPIONATE, NASAL, 50 MCG/ACT nasal Suspension 12-21 00:00: 00 Yes [id number] 50ug Use 1 spray (50 mcg total) in each nostril daily For 7 days Wen auguste Benzonatate 200 MG oral Capsule 12-21 00:00: 00 10-03 00:00 :00 No [id number] 200mg [id number] 3D Take 1 capsule (200 mg total) by mouth 3 times daily as needed for cough Wen auguste Pantoprazol e Sodium 40 MG oral Tablet Delayed Response 12-11 10:49: 55 12-11 00:00 :00 No 40mg Take 40 mg by mouth daily Wen auguste Adalimumab (Humira Pen) 40 MG/0.8ML subcutaneou s Pen-injecto r Kit 12-11 10:24: 29 Yes 40mg Inject 40 mg into the skin once a week Wen auguste Zinc 50 MG oral Tablet 12-11 10:14: 15 Yes 1{tbl} Take 1 tablet by mouth daily Wen auguste Cholecalcif demetria-Vitami n C (VITAMIN D3-VITAMIN C OR) 12-11 10:14: 15 Yes 1{tbl} Take 1 tablet by mouth daily Wen auguste Aspirin 81 MG oral Tablet Delayed Response 12-11 10:14: 15 Yes 81mg Take 1 tablet (81 mg total) by mouth daily. Wen auguste Sulfasalazi ne 500 MG oral Tablet 12-11 10:14: 15 Yes 500mg Take 500 mg by mouth 2 times daily Wen auguste Losartan Potassium 100 MG oral Tablet 12-11 10:14: 15 Yes 100mg Take 100 mg by mouth daily Wen auguste Carvedilol 3.125 MG oral Tablet 12-11 10:14: 15 Yes 3.125mg Take 3.125 mg by mouth in the morning and 3.125 mg in the evening. Take with meals. Wen auguste Amlodipine Besylate 5 MG oral Tablet 12-11 10:14: 15 Yes 5mg Take 5 mg by mouth daily Wen auguste Potassium Gluconate 550 MG oral Tablet 12-11 10:14: 15 Yes 1{tbl} Take 1 tablet by mouth daily Wen auguste Pantoprazol e Sodium 40 MG oral Tablet Delayed Response 2-20 00:00: 00 Yes 40mg Take 1 tablet (40 mg total) by mouth daily Wen auguste Hydroxychlo roquine Sulfate 200 MG oral Tablet 11-22 00:00: 00 02-28 00:00 :00 No [id number] 200mg Take 1 tablet (200 mg total) by mouth 2 times daily Wen auguste Cyanocobala min (B-12) 1000 MCG oral Capsule 11-08 00:00: 00 Yes 1{tbl} Take 1 tablet by mouth daily. Wen auguste [place]-3 Fatty Acids (Fish Oil) 1000 MG oral Capsule 11-08 00:00: 00 Yes 2000mg Take 2 capsules (2,000 mg total) by mouth 2 times daily. Wen auguste Solifenacin Succinate 5 MG oral Tablet 11-02 10:05: 40 11-02 00:00 :00 No 5mg Take 5 mg by mouth 2 times daily Wen auguste predniSONE 5 MG oral Tablet 11-02 10:05: 40 11-02 00:00 :00 No 5mg Take 5 mg by mouth as needed Wen auguset Chlorthalid one 25 MG oral Tablet 11-02 10:05: 40 11-02 00:00 :00 No 25mg Take 25 mg by mouth daily Wen auguste Amlodipine Besylate 5 MG oral Tablet 11-02 10:04: 36 Yes 5mg Take 5 mg by mouth daily Wen auguste Potassium Gluconate 550 MG oral Tablet 11-02 10:04: 36 Yes 1{tbl} Take 1 tablet by mouth daily Wen auguste Zinc 50 MG oral Tablet 11-02 10:04: 36 Yes 1{tbl} Take 1 tablet by mouth daily Wen auguste FIBER OR 2023-0 1-12 10:04: 36 Yes 1{capsu le} Take 1 capsule by mouth daily Wen auguste Adalimumab (Humira Pen) 40 MG/0.8ML subcutaneou s Pen-injecto r Kit 11-02 10:04: 36 Yes 40mg Inject 40 mg into the skin once a week Wen auguste Aspirin 81 MG oral Tablet Delayed Response 11-02 10:04: 36 Yes 81mg Take 81 mg by mouth daily Wen auguste Losartan Potassium 100 MG oral Tablet 11-02 10:01: 42 Yes 100mg Take 100 mg by mouth daily Wen auguste Carvedilol 3.125 MG oral Tablet 11-02 10:01: 42 Yes 3.125mg Take 3.125 mg by mouth in the morning and 3.125 mg in the evening. Take with meals. Wen auguste Pantoprazol e Sodium 40 MG oral Tablet Delayed Response 11-02 10:01: 42 Yes 40mg Take 40 mg by mouth daily Wen auguste Sulfasalazi ne 500 MG oral Tablet 11-02 10:01: 42 Yes 500mg Take 500 mg by mouth 2 times daily Wen auguste aspirin 81 mg chewable tablet 01-23 15:02: 49 Yes [id number] 81mg Take 81 mg by mouth daily. [facility] adalimumab (HUMIRA) 40 mg/0.8 mL injection 01-23 15:02: 49 Yes [id number] 40mg inject 40 mg under the skin every 2 (two) weeks. [facility] ergocalcife rol, vitamin D2, (VITAMIN D ORAL) 01-23 15:02: 49 Yes [id number] 2000U Take 2,000 Units by mouth daily. [facility] pantoprazol e 40 mg EC tablet 01-23 15:02: 49 Yes [id number] 40mg Take 40 mg by mouth daily. [facility] pantoprazol e (PROTONIX) EC tablet 40 mg 01-23 14:00: 00 Yes 40mg 40 mg, Oral, DAILY, First dose on 01/23/21 at 0900, Until Discontinu ed, Routine [facility] sulfaSALAzi ne (AZULFIDINE ) tablet 500 mg 01-23 13:00: 00 Yes 500mg 500 mg, Oral, BID, First dose on 01/23/21 at 0800, Until Discontinu ed, AMRITA [facility] heparin (porcine) injection 5,000 Units 01-23 11:00: 00 Yes 5000U 5,000 Units, Subcutaneo us, Q8H, First dose on 01/23/21 at 0600, Until Discontinu ed, Routine [facility] aspirin-shun cium carbonate 81 mg-300 mg calcium(777 mg) Tab 01-23 05:37: 21 01-22 00:00 :00 No Take by mouth. [facility] chlorthalid one 25 mg tablet 01-23 05:37: 01-22 00:00 :00 No 25mg Take 25 mg by mouth. [facility] ondansetron (ZOFRAN (PF)) injection 4 mg 01-23 05:37: 03 Yes 4mg 4 mg, Slow IV Push, Q6HPRN, Starting 01/23/21 at 0037, Until Discontinu ed, Routine, Nausea and Vomiting (N/V) [facility] traMADoL (ULTRAM) tablet 50 mg 01-23 05:36: 52 01-25 05:35 :52 No 50mg 50 mg, Oral, Q8HPRN, Starting 01/23/21 at 0036, Until 01/25/21 at 0035, Routine, Pain (scale 4-6) [facility] acetaminoph en (TYLENOL) tablet 650 mg 01-23 05:36: 50 Yes 650mg 650 mg, Oral, Q6HPRN, Starting 01/23/21 at 0036, Until Discontinu ed, Routine, Pain (scale 1-3) [facility] NaCl 0.9% (NS) IV infusion 1,000 mL 01-23 04:15: 00 01-23 03:01 :00 No 1000mL at 999 mL/hr, Intravenou s, ONCE, 1 dose, 01/22/21 at 2315, Routine [facility] iohexol (OMNIPAQUE 350 BULK-150 mL) injection 120 mL 01-23 03:30: 00 01-23 03:10 :00 No [id number] 120mL 120 mL, Intravenou s, ONCE, 1 dose, 01/22/21 at 2230, Routine [facility] ondansetron (ZOFRAN (PF)) injection 4 mg 01-23 03:30: 00 01-23 02:22 :00 No [id number] 4mg 4 mg, Slow IV Push, ONCE, 1 dose, 01/22/21 at 2230, AMRITA [facility] NaCl 0.9% (NS) bolus infusion 500 mL 01-23 03:15: 00 01-23 03:00 :00 No [id number] 500mL at 999 mL/hr, 500 mL, IV Infusion, ONCE, 1 dose, 01/22/21 at 2215, STAT [facility] NaCl 0.9% (NS) IV infusion 500 mL 04 02:45: 00 01-23 03:00 :00 No [id number] 500mL at 500 mL/hr, IV Infusion, ONCE, 1 dose, 01/22/21 at 2145, AMRITA [facility] amLODIPine 10 mg tablet 2-02 00:00: 00 Yes [id number] 10mg Take 10 mg by mouth daily. [facility] hydrALAZINE 50 mg tablet 2-02 00:00: 00 Yes [id number] 50mg Take 50 mg by mouth 2 (two) times daily. [facility] losartan 100 mg tablet 2-02 00:00: 00 Yes [id number] 100mg Take 100 mg by mouth daily. [facility] carvediloL 25 mg tablet 1-20 00:00: 00 Yes [id number] 25mg Take 25 mg by mouth 2 (two) times daily with meals. [facility] sulfaSALAzi ne 500 mg tablet 2020-0 1-14 00:00: 00 Yes [id number] 500mg Take 500 mg by mouth 2 (two) times daily. [facility] Immunizations Ordered Immunization Name Filled Immunization Name Date Status Comments Source Influenza Virus Vaccine, Quadrivalent, High Dose, Age 65 And Up 2022-10-21 00:00:00 Completed Wen Seybold - External Influenza Virus Vaccine, High Dose, Age 65 And Up 2022-10-21 00:00:00 Completed Wen Seybold - External Influenza Virus Vaccine, Quadrivalent, High Dose, Age 65 And Up 2022-10-21 00:00:00 Completed Wen Seybold - External Influenza Virus Vaccine, High Dose, Age 65 And Up 2022-10-21 00:00:00 Completed Wen Seybold - External Influenza Virus Vaccine, Quadrivalent, High Dose, Age 65 And Up 2022-10-21 00:00:00 Completed Wen Seybold - External Influenza Virus Vaccine, High Dose, Age 65 And Up 2022-10-21 00:00:00 Completed Wen Seybold - External Influenza Virus Vaccine, Quadrivalent, High Dose, Age 65 And Up 2022-10-21 00:00:00 Completed Wen Seybold - External Influenza Virus Vaccine, High Dose, Age 65 And Up 2022-10-21 00:00:00 Completed Wen Seybold - External Influenza Virus Vaccine, Quadrivalent, High Dose, Age 65 And Up 2022-10-21 00:00:00 Completed Wen Seybold - External Influenza Virus Vaccine, High Dose, Age 65 And Up 2022-10-21 00:00:00 Completed Wen Seybold - External Influenza Virus Vaccine, Quadrivalent, High Dose, Age 65 And Up 2022-10-21 00:00:00 Completed Wen Seybold - External Influenza Virus Vaccine, High Dose, Age 65 And Up 2022-10-21 00:00:00 Completed Wen Seybold - External Influenza Virus Vaccine, Quadrivalent, High Dose, Age 65 And Up 2022-10-21 00:00:00 Completed Wen Seybold - External Influenza Virus Vaccine, Quadrivalent, High Dose, Age 65 And Up 2022-10-21 00:00:00 Completed Wen Seybold - External Influenza Virus Vaccine, High Dose, Age 65 And Up 2021-07-30 00:00:00 Completed Wen Seybold - External Influenza Virus Vaccine, High Dose, Age 65 And Up 2021-07-30 00:00:00 Completed Wen Seybold - External Influenza Virus Vaccine, High Dose, Age 65 And Up 2021-07-30 00:00:00 Completed Wen Seybold - External Influenza Virus Vaccine, High Dose, Age 65 And Up 2021-07-30 00:00:00 Completed Wen Seybold - External Influenza Virus Vaccine, High Dose, Age 65 And Up 2021-07-30 00:00:00 Completed Wen Seybold - External Influenza Virus Vaccine, High Dose, Age 65 And Up 2021-07-30 00:00:00 Completed Wen Seybold - External Pneumococcal Vaccine, Polysaccharide 2021-04-08 00:00:00 Completed Wen Seybold - External Pneumococcal Vaccine, Polysaccharide 2021-04-08 00:00:00 Completed Wen Seybold - External Pneumococcal Vaccine, Polysaccharide 2021-04-08 00:00:00 Completed Wen Seybold - External Pneumococcal Vaccine, Polysaccharide 2021-04-08 00:00:00 Completed Wen Seybold - External Pneumococcal Vaccine, Polysaccharide 2021-04-08 00:00:00 Completed Wen Seybold - External Pneumococcal Vaccine, Polysaccharide 2021-04-08 00:00:00 Completed Wen Seybold - External Pneumococcal Vaccine, Polysaccharide 2021-04-08 00:00:00 Completed Wen Seybold - External Pneumococcal Vaccine, Polysaccharide 2021-04-08 00:00:00 Completed Wen Seybold - External SARS-COV-2 COVID-19 PFIZER VACCINE 2021-01-03 00:00:00 Completed [facility] SARS-COV-2 COVID-19 PFIZER VACCINE 2020-12-13 00:00:00 Completed [facility] Shingles IM (Shingrix) 2020-09-08 00:00:00 Completed Wen Seybold - External Shingles IM (Shingrix) 2020-09-08 00:00:00 Completed Wen Seybold - External Shingles IM (Shingrix) 2020-09-08 00:00:00 Completed Wen Seybold - External Shingles IM (Shingrix) 2020-09-08 00:00:00 Completed Wen Seybold - External Shingles IM (Shingrix) 2020-09-08 00:00:00 Completed Wen Seybold - External Shingles IM (Shingrix) 2020-09-08 00:00:00 Completed Wen Seybold - External Influenza Virus Vaccine, High Dose, Age 65 And Up 2020-07-24 00:00:00 Completed Wen Seybold - External Influenza Virus Vaccine, High Dose, Age 65 And Up 2020-07-24 00:00:00 Completed Wen Seybold - External Influenza Virus Vaccine, High Dose, Age 65 And Up 2020-07-24 00:00:00 Completed Wen Seybold - External Influenza Virus Vaccine, High Dose, Age 65 And Up 2020-07-24 00:00:00 Completed Wen Seybold - External Influenza Virus Vaccine, High Dose, Age 65 And Up 2020-07-24 00:00:00 Completed Wen Seybold - External Influenza Virus Vaccine, High Dose, Age 65 And Up 2020-07-24 00:00:00 Completed Wen Seybold - External Shingles IM (Shingrix) 2020-06-04 00:00:00 Completed Wen Seybold - External Shingles IM (Shingrix) 2020-06-04 00:00:00 Completed Wen Seybold - External Shingles IM (Shingrix) 2020-06-04 00:00:00 Completed Wen Seybold - External Shingles IM (Shingrix) 2020-06-04 00:00:00 Completed Wen Seybold - External Shingles IM (Shingrix) 2020-06-04 00:00:00 Completed Wen Seybold - External Shingles IM (Shingrix) 2020-06-04 00:00:00 Completed Wen Seybold - External Influenza Virus Vaccine, High Dose, Age 65 And Up 2019-09-01 00:00:00 Completed Wen Seybold - External Influenza Virus Vaccine, High Dose, Age 65 And Up 2019-09-01 00:00:00 Completed Wen Seybold - External Influenza Virus Vaccine, High Dose, Age 65 And Up 2019-09-01 00:00:00 Completed Wen Seybold - External Influenza Virus Vaccine, High Dose, Age 65 And Up 2019-09-01 00:00:00 Completed Wen Seybold - External Influenza Virus Vaccine, High Dose, Age 65 And Up 2019-09-01 00:00:00 Completed Wen Seybold - External Influenza Virus Vaccine, High Dose, Age 65 And Up 2019-09-01 00:00:00 Completed Wen Seybold - External Influenza Virus Vaccine, High Dose, Age 65 And Up 2019-09-01 00:00:00 Completed Wen Seybold - External Influenza Virus Vaccine, High Dose, Age 65 And Up 2019-09-01 00:00:00 Completed Wen Seybold - External Influenza Virus Vaccine, High Dose, Age 65 And Up Unknown Completed Wen Seybold - External Influenza Virus Vaccine, Quadrivalent, High Dose, Age 65 And Up Unknown Completed Wen S eybold - External Pneumococcal Vaccine, Polysaccharide Unknown Completed Wen Seybol d - External Influenza Virus Vaccine, High Dose, Age 65 And Up Unknown Completed Wen Seybold - External Influenza Virus Vaccine, High Dose, Age 65 And Up Unknown Completed Wen Seybold - External Influenza Virus Vaccine, High Dose, Age 65 And Up Unknown Completed Wen Seybold - External Shingles IM (Shingrix) Unknown Completed Wen Seybold - External Shingles IM (Shingrix) Unknown Completed Wen Seybold - External Influenza Virus Vaccine, High Dose, Age 65 And Up Unknown Completed Wne Seybold - External Influenza Virus Vaccine, Quadrivalent, High Dose, Age 65 And Up Unknown Completed Wne S eybold - External Pneumococcal Vaccine, Polysaccharide Unknown Completed Wen Seybol d - External Influenza Virus Vaccine, High Dose, Age 65 And Up Unknown Completed Wen Seybold - External Influenza Virus Vaccine, High Dose, Age 65 And Up Unknown Completed Wen Seybold - External Influenza Virus Vaccine, High Dose, Age 65 And Up Unknown Completed Wen Seybold - External Shingles IM (Shingrix) Unknown Completed Wen Seybold - External Shingles IM (Shingrix) Unknown Completed Wen Seybold - External Influenza Virus Vaccine, High Dose, Age 65 And Up Unknown Completed Wen Seybold - External Influenza Virus Vaccine, Quadrivalent, High Dose, Age 65 And Up Unknown Completed Wen S eybold - External Pneumococcal Vaccine, Polysaccharide Unknown Completed Wen Seybol d - External Influenza Virus Vaccine, High Dose, Age 65 And Up Unknown Completed Wen Seybold - External Influenza Virus Vaccine, High Dose, Age 65 And Up Unknown Completed Wen Seybold - External Influenza Virus Vaccine, High Dose, Age 65 And Up Unknown Completed Wen Seybold - External Shingles IM (Shingrix) Unknown Completed Wen Seybold - External Shingles IM (Shingrix) Unknown Completed Wen Seybold - External Influenza Virus Vaccine, High Dose, Age 65 And Up Unknown Completed Wen Seybold - External Influenza Virus Vaccine, Quadrivalent, High Dose, Age 65 And Up Unknown Completed Wen S eybold - External Pneumococcal Vaccine, Polysaccharide Unknown Completed Wen Seybol d - External Influenza Virus Vaccine, High Dose, Age 65 And Up Unknown Completed Wen Seybold - External Influenza Virus Vaccine, High Dose, Age 65 And Up Unknown Completed Wen Seybold - External Influenza Virus Vaccine, High Dose, Age 65 And Up Unknown Completed Wen Seybold - External Shingles IM (Shingrix) Unknown Completed Wen Seybold - External Shingles IM (Shingrix) Unknown Completed Wne Seybold - External Influenza Virus Vaccine, High Dose, Age 65 And Up Unknown Completed Wen Seybold - External Influenza Virus Vaccine, Quadrivalent, High Dose, Age 65 And Up Unknown Completed Wen S eybold - External Pneumococcal Vaccine, Polysaccharide Unknown Completed Wen Seybol d - External Influenza Virus Vaccine, High Dose, Age 65 And Up Unknown Completed Wen Seybold - External Influenza Virus Vaccine, High Dose, Age 65 And Up Unknown Completed Wen Seybold - External Influenza Virus Vaccine, High Dose, Age 65 And Up Unknown Completed Wen Seybold - External Shingles IM (Shingrix) Unknown Completed Wen Seybold - External Shingles IM (Shingrix) Unknown Completed Wen Seybold - External Influenza Virus Vaccine, High Dose, Age 65 And Up Unknown Completed Wen Seybold - External Influenza Virus Vaccine, Quadrivalent, High Dose, Age 65 And Up Unknown Completed Wen S eybold - External Pneumococcal Vaccine, Polysaccharide Unknown Completed Wen Seybol d - External Influenza Virus Vaccine, High Dose, Age 65 And Up Unknown Completed Wen Seybold - External Influenza Virus Vaccine, High Dose, Age 65 And Up Unknown Completed Wen Seybold - External Influenza Virus Vaccine, High Dose, Age 65 And Up Unknown Completed Wen Seybold - External Shingles IM (Shingrix) Unknown Completed Wen Seybold - External Shingles IM (Shingrix) Unknown Completed Wen Seybold - External Influenza vaccine, quadrivalent, adjuvanted, 65+ Unknown Completed Wen Seybo ld - External Influenza Virus Vaccine, High Dose, Age 65 And Up Unknown Completed Wen Seybold - External Influenza Virus Vaccine, Quadrivalent, High Dose, Age 65 And Up Unknown Completed Wen S eybold - External Pneumococcal Vaccine, Polysaccharide Unknown Completed Wen Seybol d - External Influenza Virus Vaccine, High Dose, Age 65 And Up Unknown Completed Wen Seybold - External Influenza Virus Vaccine, High Dose, Age 65 And Up Unknown Completed Wen Seybold - External Influenza Virus Vaccine, High Dose, Age 65 And Up Unknown Completed Wen Seybold - External Shingles IM (Shingrix) Unknown Completed Wen Seybold - External Shingles IM (Shingrix) Unknown Completed Wen Seybold - External Influenza vaccine, quadrivalent, adjuvanted, 65+ Unknown Completed Wen Seybo ld - External Influenza Virus Vaccine, High Dose, Age 65 And Up Unknown Completed Wen Seybold - External Influenza Virus Vaccine, Quadrivalent, High Dose, Age 65 And Up Unknown Completed Wen S eybold - External Pneumococcal Vaccine, Polysaccharide Unknown Completed Wen Seybol d - External Influenza Virus Vaccine, High Dose, Age 65 And Up Unknown Completed Wen Seybold - External Influenza Virus Vaccine, High Dose, Age 65 And Up Unknown Completed Wen Seybold - External Influenza Virus Vaccine, High Dose, Age 65 And Up Unknown Completed Wen Seybold - External Shingles IM (Shingrix) Unknown Completed Wen Seybold - External Shingles IM (Shingrix) Unknown Completed Wen Seybold - External Influenza vaccine, quadrivalent, adjuvanted, 65+ Unknown Completed Wen Seybo ld - External Pneumococcal Vaccine, Conjugate 20 Unknown Completed Wen Seybold - External Influenza Virus Vaccine, High Dose, Age 65 And Up Unknown Completed Wen Seybold - External Influenza Virus Vaccine, Quadrivalent, High Dose, Age 65 And Up Unknown Completed Wen S eybold - External Pneumococcal Vaccine, Polysaccharide Unknown Completed Wen Seybol d - External Influenza Virus Vaccine, High Dose, Age 65 And Up Unknown Completed Wen Seybold - External Influenza Virus Vaccine, High Dose, Age 65 And Up Unknown Completed Wen Seybold - External Influenza Virus Vaccine, High Dose, Age 65 And Up Unknown Completed Wen Seybold - External Shingles IM (Shingrix) Unknown Completed Wen Seybold - External Shingles IM (Shingrix) Unknown Completed Wen Seybold - External Influenza vaccine, quadrivalent, adjuvanted, 65+ Unknown Completed Wen Seybo ld - External Pneumococcal Vaccine, Conjugate 20 Unknown Completed Wen Seybold - External Influenza Virus Vaccine, High Dose, Age 65 And Up Unknown Completed Wen Seybold - External Influenza Virus Vaccine, Quadrivalent, High Dose, Age 65 And Up Unknown Completed Wen S eybold - External Pneumococcal Vaccine, Polysaccharide Unknown Completed Wen Seybol d - External Influenza Virus Vaccine, High Dose, Age 65 And Up Unknown Completed Wen Seybold - External Influenza Virus Vaccine, High Dose, Age 65 And Up Unknown Completed Wen Seybold - External Influenza Virus Vaccine, High Dose, Age 65 And Up Unknown Completed Wen Seybold - External Shingles IM (Shingrix) Unknown Completed Wen Seybold - External Shingles IM (Shingrix) Unknown Completed Wen Seybold - External Influenza vaccine, quadrivalent, adjuvanted, 65+ Unknown Completed Wen Seybo ld - External Pneumococcal Vaccine, Conjugate 20 Unknown Completed Wen Seybold - External Influenza Virus Vaccine, High Dose, Age 65 And Up Unknown Completed Wen Seybold - External Influenza Virus Vaccine, Quadrivalent, High Dose, Age 65 And Up Unknown Completed Wen S eybold - External Pneumococcal Vaccine, Polysaccharide Unknown Completed Wen Seybol d - External Influenza Virus Vaccine, High Dose, Age 65 And Up Unknown Completed Wen Seybold - External Influenza Virus Vaccine, High Dose, Age 65 And Up Unknown Completed Wen Seybold - External Influenza Virus Vaccine, High Dose, Age 65 And Up Unknown Completed Wen Seybold - External Shingles IM (Shingrix) Unknown Completed Wen Seybold - External Shingles IM (Shingrix) Unknown Completed Wen Seybold - External Influenza vaccine, quadrivalent, adjuvanted, 65+ Unknown Completed Wen Seybo ld - External Pneumococcal Vaccine, Conjugate 20 Unknown Completed Wen Seybold - External Influenza Virus Vaccine, High Dose, Age 65 And Up Unknown Completed Wen Seybold - External Influenza Virus Vaccine, Quadrivalent, High Dose, Age 65 And Up Unknown Completed Wen S eybold - External Pneumococcal Vaccine, Polysaccharide Unknown Completed Wen Seybol d - External Influenza Virus Vaccine, High Dose, Age 65 And Up Unknown Completed Wen Seybold - External Influenza Virus Vaccine, High Dose, Age 65 And Up Unknown Completed Wen Seybold - External Influenza Virus Vaccine, High Dose, Age 65 And Up Unknown Completed Wen Seybold - External Shingles IM (Shingrix) Unknown Completed Wen Seybold - External Shingles IM (Shingrix) Unknown Completed Wen Seybold - External Influenza vaccine, quadrivalent, adjuvanted, 65+ Unknown Completed Wen Seybo ld - External Pneumococcal Vaccine, Conjugate 20 Unknown Completed Wen Seybold - External Influenza Virus Vaccine, High Dose, Age 65 And Up Unknown Completed Wen Seybold - External Influenza Virus Vaccine, Quadrivalent, High Dose, Age 65 And Up Unknown Completed Wen S eybold - External Pneumococcal Vaccine, Polysaccharide Unknown Completed Wen Seybol d - External Influenza Virus Vaccine, High Dose, Age 65 And Up Unknown Completed Wen Seybold - External Influenza Virus Vaccine, High Dose, Age 65 And Up Unknown Completed Wen Seybold - External Influenza Virus Vaccine, High Dose, Age 65 And Up Unknown Completed Wen Seybold - External Shingles IM (Shingrix) Unknown Completed Wen Seybold - External Shingles IM (Shingrix) Unknown Completed Wen Seybold - External Influenza vaccine, quadrivalent, adjuvanted, 65+ Unknown Completed Wen Seybo ld - External Pneumococcal Vaccine, Conjugate 20 Unknown Completed Wen Seybold - External Influenza Virus Vaccine, High Dose, Age 65 And Up Unknown Completed Wen Seybold - External Influenza Virus Vaccine, Quadrivalent, High Dose, Age 65 And Up Unknown Completed Wen S eybold - External Pneumococcal Vaccine, Polysaccharide Unknown Completed Wen Seybol d - External Influenza Virus Vaccine, High Dose, Age 65 And Up Unknown Completed Wen Seybold - External Influenza Virus Vaccine, High Dose, Age 65 And Up Unknown Completed Wen Seybold - External Influenza Virus Vaccine, High Dose, Age 65 And Up Unknown Completed Wen Seybold - External Shingles IM (Shingrix) Unknown Completed Wen Seybold - External Shingles IM (Shingrix) Unknown Completed Wen Seybold - External Influenza vaccine, quadrivalent, adjuvanted, 65+ Unknown Completed Wen Cotaybo ld - External Pneumococcal Vaccine, Conjugate 20 Unknown Completed Wen Seybold - External Influenza Virus Vaccine, High Dose, Age 65 And Up Unknown Completed Wen Seybold - External Influenza Virus Vaccine, Quadrivalent, High Dose, Age 65 And Up Unknown Completed Wen Fritz eybold - External Pneumococcal Vaccine, Polysaccharide Unknown Completed Wen Hawkol d - External Influenza Virus Vaccine, High Dose, Age 65 And Up Unknown Completed Wen Seybold - External Influenza Virus Vaccine, High Dose, Age 65 And Up Unknown Completed Wen Seybold - External Influenza Virus Vaccine, High Dose, Age 65 And Up Unknown Completed Wen Seybold - External Shingles IM (Shingrix) Unknown Completed Wen Seybold - External Shingles IM (Shingrix) Unknown Completed Wen Seybold - External Influenza vaccine, quadrivalent, adjuvanted, 65+ Unknown Completed Wen Hawko ld - External Pneumococcal Vaccine, Conjugate 20 Unknown Completed Wen Seybold - External Vital Signs Vital Name Observation Time Observation Value Comments S ource Body weight 2024-03-14 18:16:00 95.709 kg Ariadna ey Seybold - External BMI 2024-03-14 18:16:00 33.05 kg/m2 Ariadna ey Seybold - External Systolic blood pressure 2024-03-12 16:13:00 134 mm[Hg] Wen Cotaybo ld - External Diastolic blood pressure 2024-03-12 16:13:00 74 mm[Hg] Wen Cotaybo ld - External Heart rate 2024-03-12 15:48:00 70 /min Kingsleyse michell Cotaybold - External Body temperature 2024-03-12 15:48:00 36.61 Patricia Wen Cotaybold - External Respiratory rate 2024-03-12 15:48:00 15 /min Wen Cotaybold - External Body height 2024-03-12 15:48:00 170.2 cm Ariadna ey Seybold - External Body weight 2024-03-12 15:48:00 97.07 kg Ariadna ey Seybold - External BMI 2024-03-12 15:48:00 33.52 kg/m2 Ariadna ey Seybold - External Oxygen saturation in Arterial blood by Pulse oximetry 2024-03-12 15:48:00 100 /min Wen Seybo ld - External Systolic blood pressure 2024-02-27 15:15:00 118 mm[Hg] Wen Seybo ld - External Diastolic blood pressure 2024-02-27 15:15:00 64 mm[Hg] Wen Seybo ld - External Heart rate 2024-02-27 15:15:00 84 /min Kingsleyse y Seybold - External Body temperature 2024-02-27 15:15:00 36.61 Patricia Wen Seybold - External Respiratory rate 2024-02-27 15:15:00 18 /min Wen Seybold - External Body weight 2024-02-27 15:15:00 95.936 kg Ariadna ey Seybold - External BMI 2024-02-27 15:15:00 33.13 kg/m2 Ariadna ey Seybold - External Systolic blood pressure 2023-11-29 15:54:00 118 mm[Hg] Wen Seybo ld - External Diastolic blood pressure 2023-11-29 15:54:00 72 mm[Hg] Wen Seybo ld - External Heart rate 2023-11-29 15:54:00 87 /min Kelse y Seybold - External Body temperature 2023-11-29 15:54:00 36.22 Patricia Wen Seybold - External Respiratory rate 2023-11-29 15:54:00 14 /min Wen Seybold - External Body height 2023-11-29 15:54:00 170.2 cm Ariadna ey Seybold - External Body weight 2023-11-29 15:54:00 96.616 kg Ariadna ey Seybold - External BMI 2023-11-29 15:54:00 33.36 kg/m2 Ariadna ey Seybold - External Systolic blood pressure 2023-11-07 16:31:00 136 mm[Hg] Wen Seybo ld - External Diastolic blood pressure 2023-11-07 16:31:00 84 mm[Hg] Wen Seybo ld - External Heart rate 2023-11-07 16:31:00 70 /min Kelse y Seybold - External Respiratory rate 2023-11-07 16:31:00 20 /min Wen Seybold - External Body temperature 2023-11-07 16:29:00 36.39 Patricia Wen Seybold - External Body height 2023-11-07 16:29:00 170.2 cm Ariadna ey Seybold - External Body weight 2023-11-07 16:29:00 95.981 kg Ariadna ey Seybold - External BMI 2023-11-07 16:29:00 33.14 kg/m2 Ariadna ey Seybold - External Systolic blood pressure 2023-10-23 19:50:00 108 mm[Hg] Wen Seybo ld - External Diastolic blood pressure 2023-10-23 19:50:00 68 mm[Hg] Wen Seybo ld - External Heart rate 2023-10-23 19:50:00 97 /min Kelse y Seybold - External Body temperature 2023-10-23 19:50:00 36.17 Patricia Wen Seybold - External Respiratory rate 2023-10-23 19:50:00 14 /min Wen Seybold - External Body height 2023-10-23 19:50:00 170.2 cm Ariadna ey Seybold - External Body weight 2023-10-23 19:50:00 96.616 kg Ariadna ey Seybold - External BMI 2023-10-23 19:50:00 33.36 kg/m2 Ariadna ey Seybold - External Systolic blood pressure 2023-10-03 14:18:00 120 mm[Hg] Wen Seybo ld - External Diastolic blood pressure 2023-10-03 14:18:00 74 mm[Hg] Wen Seybo ld - External Heart rate 2023-10-03 14:18:00 70 /min Kelse y Seybold - External Body temperature 2023-10-03 14:18:00 36.78 Patricia Wen Seybold - External Respiratory rate 2023-10-03 14:18:00 16 /min Wen Seybold - External Body height 2023-10-03 14:18:00 170.2 cm Ariadna ey Seybold - External Body weight 2023-10-03 14:18:00 91.74 kg Ariadna ey Seybold - External BMI 2023-10-03 14:18:00 31.68 kg/m2 Ariadna ey Seybold - External Oxygen saturation in Arterial blood by Pulse oximetry 2023-10-03 14:18:00 98 /min Wen Seybo ld - External Systolic blood pressure 2023-07-12 20:41:00 116 mm[Hg] Wen Seybo ld - External Diastolic blood pressure 2023-07-12 20:41:00 62 mm[Hg] Wen Seybo ld - External Heart rate 2023-07-12 20:41:00 80 /min Kelse y Seybold - External Body temperature 2023-07-12 20:41:00 36.5 Patricia Wen Seybold - External Respiratory rate 2023-07-12 20:41:00 15 /min Wen Seybold - External Body height 2023-07-12 20:41:00 170.2 cm Ariadna ey Seybold - External Body weight 2023-07-12 20:41:00 98.431 kg Ariadna ey Seybold - External BMI 2023-07-12 20:41:00 33.99 kg/m2 Ariadna ey Seybold - External Systolic blood pressure 2023-07-04 14:52:00 145 mm[Hg] Wen Seybo ld - External Diastolic blood pressure 2023-07-04 14:52:00 80 mm[Hg] Wen Seybo ld - External Heart rate 2023-07-04 14:52:00 75 /min Kelse y Seybold - External Body temperature 2023-07-04 14:52:00 36.56 Patricia Wen Seybold - External Respiratory rate 2023-07-04 14:52:00 18 /min Wen Seybold - External Body height 2023-07-04 14:52:00 170.2 cm Ariadna ey Seybold - External Body weight 2023-07-04 14:52:00 98.612 kg Ariadna ey Seybold - External BMI 2023-07-04 14:52:00 34.05 kg/m2 Ariadna ey Seybold - External Systolic blood pressure 2023-02-28 14:39:00 110 mm[Hg] Wen Seybo ld - External Diastolic blood pressure 2023-02-28 14:39:00 64 mm[Hg] Wen Seybo ld - External Heart rate 2023-02-28 14:39:00 60 /min Kelse y Seybold - External Body temperature 2023-02-28 14:39:00 36.89 Patricia Wen Seybold - External Respiratory rate 2023-02-28 14:39:00 12 /min Wen Seybold - External Body weight 2023-02-28 14:39:00 99.338 kg Ariadna ey Seybold - External BMI 2023-02-28 14:39:00 34.30 kg/m2 Ariadna ey Seybold - External Systolic blood pressure 2022-11-22 15:45:00 136 mm[Hg] Wen Seybo ld - External Diastolic blood pressure 2022-11-22 15:45:00 74 mm[Hg] Wen Seybo ld - External Heart rate 2022-11-22 15:45:00 70 /min Kelse y Seybold - External Body temperature 2022-11-22 15:45:00 36.56 Patricia Wen Seybold - External Respiratory rate 2022-11-22 15:45:00 18 /min Wen Seybold - External Body height 2022-11-22 15:45:00 170.2 cm Ariadna ey Seybold - External Body weight 2022-11-22 15:45:00 98.612 kg Ariadna ey Seybold - External BMI 2022-11-22 15:45:00 34.05 kg/m2 Ariadna ey Seybold - External Systolic blood pressure 2022-11-02 15:56:00 136 mm[Hg] Wen Seybo ld - External Diastolic blood pressure 2022-11-02 15:56:00 70 mm[Hg] Wen Seybo ld - External Body temperature 2022-11-02 15:56:00 36.5 Patricia Wen Seybold - External Respiratory rate 2022-11-02 15:56:00 14 /min Wen Seybold - External Body height 2022-11-02 15:56:00 170.2 cm Ariadna Myrick - External Body weight 2022-11-02 15:56:00 98.249 kg Ariadna Myrick - External BMI 2022-11-02 15:56:00 33.92 kg/m2 Ariadna Myrick - External Oxygen saturation in Arterial blood by Pulse oximetry 2022-11-02 15:56:00 99 /min Wen Garcia ld - External Systolic blood pressure 2021-01-23 14:00:00 129 mm[Hg] [facility] Diastolic blood pressure 2021-01-23 14:00:00 72 mm[Hg] [facility] Heart rate 2021-01-23 14:00:00 68 /min [facility] Respiratory rate 2021-01-23 14:00:00 16 /min [facility] Oxygen saturation in Arterial blood by Pulse oximetry 2021-01-23 14:00:00 96 /min [facility] Body temperature 2021-01-23 12:00:00 36.5 Patricia [facility] Body height 2021-01-23 05:11:00 175.3 cm [facility] Body weight 2021-01-23 05:11:00 102.967 kg [facility] BMI 2021-01-23 05:11:00 33.52 kg/m2 [facility] Procedures Procedure Date / Time Performed Performing Clinicia n Source [facility] 2023-11-29 16:01:09 Dino Zamudio eybold - External LUMBAR SPINE 2 VIEWS 2023-07-04 16:07:40 Zelalem Gaston - External SACRO-ILIAC JOINTS BILAT 2023-07-04 16:06:56 Zelalem Gaston - External LACTIC ACID WHOLE BLOOD 2021-01-23 06:53:00 Cynthia Santizo [facility] URINALYSIS 2021-01-23 05:19:00 Cynthia Santizo [facility] CT ABDOMEN PELVIS W CONTRAST 2021-01-23 03:20:21 Cynthia Santizo [facility] POCT GLUCOSE (AUTOMATED) 2021-01-23 02:57:00 Cynthia Santizo [facility] LACTIC ACID WHOLE BLOOD 2021-01-23 02:34:00 Cynthia Santizo [facility] COVID-19 (ID NOW RAPID TESTING) 2021-01-23 02:15:00 Cynthia Santizo [facility] XR CHEST 1 VW 2021-01-23 01:55:31 Cynthia Santizo [facility] BASIC METABOLIC PANEL (NA, K, CL, CO2, GLUCOSE, BUN, CREATININE, CA) 2021-01-23 01:36:00 Cynthia Santizo [facility] CBC WITH DIFF 2021-01-23 01:36:00 Cynthia Santizo [facility] N-TERMINAL PRO-BNP 2021-01-23 01:36:00 Cynthia Santizo [facility] CREATINE KINASE 2021-01-23 01:36:00 Cynthia Santizo [facility] LIPASE 2021-01-23 01:36:00 Cynthia Santizo [facility] TROPONIN I 2021-01-23 01:36:00 Cynthia Santizo [facility] HEPATIC FUNCTION PANEL (99410) (ALB,T.PRO,BILI T,BU/BC,ALT,AST,ALK PHOS) 2021-01-23 01:36:00 Cynthia Santizo [facility] NOTICE OF PRIVACY PRACTICES 2021-01-23 01:17:33 Doctor Unassigned, [place] [facility] CONSENT/REFUSAL FOR DIAGNOSIS AND TREATMENT 2021-01-23 01:16:13 Doctor Unassigned, [place] [facility] Encounters Start Date/Time End Date/Time Encounter Type Admission Type Attending Clinicians Care Facility Care Department Encounter ID Source 2024-08-27 10:30:00 2024-08-27 10:30:00 Outpatient ZELALEM GASTON [id number] Wen Myrick 2024-07-03 10:45:00 2024-07-03 10:45:00 Outpatient FREDA NICHOLSON [id number] Wen Seybold 2024-07-01 11:00:00 2024-07-01 11:00:00 Outpatient MELLISA CHANDLER WEN ADEN [id number] Wen Seybold 2024-07-01 10:00:00 2024-07-01 10:00:00 Outpatient VF45 WEN ADEN [id number] Wen Seybold 2024-04-14 00:00:00 2024-04-14 00:00:00 Outpatient ROBBDINO WEN ADEN [id number] Wen Seybold 2024-04-12 11:30:00 2024-04-12 11:30:00 Outpatient AISHWARYA LORENZ [id number] Wen Seybold 2024-04-12 00:00:00 2024-04-12 00:00:00 Outpatient AKIKO ZBIGNIEWAyden ADEN [id number] Wen Seybold 2024-03-14 13:20:00 2024-03-14 13:20:00 Outpatient CAROLINE LUCITASHARON ADEN [id number] Wen Seybold 2024-03-13 00:00:00 2024-03-13 00:00:00 Outpatient PABLO ENRIQUEZAND WEN ADEN [id number] Wen Seybold 2024-03-12 11:00:00 2024-03-12 11:00:00 Outpatient PREMARIA ELENA MENDES [id number] Wen Seybold 2024-02-27 14:45:00 2024-02-27 14:45:00 Outpatient LAB47 WEN ADEN [id number] Wen Seybold 2024-02-27 14:15:00 2024-02-27 14:15:00 Outpatient FREDA NICHOLSON [id number] Wen Seybold 2024-02-27 10:30:00 2024-02-27 10:30:00 Outpatient ZELALEM GASTON [id number] Wen Seybold 2024-02-25 15:20:00 2024-02-25 15:20:00 Outpatient RADHA THOMAS [id number] Wen Seybold 2024-01-21 08:15:00 2024-01-21 08:15:00 Outpatient LAB90 WEN ADEN [id number] Wen [place] 2024-01-14 09:20:00 2024-01-14 09:20:00 Outpatient THOMAS, RADHA WEN ADEN [id number] Wen [place] 2024-01-13 00:00:00 2024-01-13 00:00:00 Outpatient ZEPEDA, GISELE WEN ADEN [id number] Wen [place] 2024-01-08 13:20:00 2024-01-08 13:20:00 Outpatient ROSSEASTON [id number] [facility] 2024-01-04 08:51:00 2024-01-04 08:51:00 Outpatient THOMAS, RADHA WEN ADEN [id number] Wen [place] 2023-12-24 10:00:00 2023-12-24 10:00:00 Outpatient THOMAS, RADHA ADEN [id number] [facility] 2023-12-17 11:30:00 2023-12-17 11:30:00 Outpatient WEN ADEN [id number] [facility] 2023-12-17 10:30:00 2023-12-17 10:30:00 [id number] [facility] 10:00:00 2023-12-17 10:00:00 Outpatient [facility] [id number] [facility] 2023-12-17 09:00:00 2023-12-17 09:00:00 [facility] [id number] [facility] 2023-12-14 00:00:00 2023-12-14 00:00:00 Outpatient RADIOLOGY, DEPT [facility] [id number] [facility] 2023-12-13 00:00:00 2023-12-13 00:00:00 Outpatient HUNDDINO Auguste [id number] [facility] 2023-11-29 11:15:00 2023-11-29 11:15:00 Outpatient LAB90 WEN ADEN [id number] Wen Seybold 2023-11-29 10:00:00 2023-11-29 10:00:00 Outpatient DINO ZAMUDIO [id number] Wen Seybold 2023-11-07 10:30:00 2023-11-07 10:30:00 Outpatient ZELALEM GASTON WEN ADEN [id number] Wen Seybold 2023-11-05 10:00:00 2023-11-05 10:00:00 Outpatient THOMASRADHA Ness WEN ADEN [id number] Wen Seybold 2023-10-31 14:00:00 2023-10-31 14:00:00 Outpatient ZAYNAB SANTOS WEN ADEN [id number] Wen Seybold 2023-10-31 10:15:00 2023-10-31 10:15:00 Outpatient ZELALEM GASTON WEN ADEN [id number] Wen Seybold 2023-10-30 08:00:00 2023-10-30 08:00:00 Outpatient LAB90 WEN ADEN [id number] Wen Seybold 2023-10-29 09:00:00 2023-10-29 09:00:00 Outpatient ZAYNAB SANTOS WEN ADEN [id number] Wen Seybold 2023-10-29 09:00:00 2023-10-29 09:00:00 Outpatient TRED45 WEN ADEN [id number] Wen Seybold 2023-10-24 00:00:00 2023-10-24 00:00:00 Outpatient MARIA ELENA ENRIQUEZ [id number] Wen Seybold 2023-10-24 00:00:00 2023-10-24 00:00:00 Outpatient BECKI DIOR [id number] Wen Seybold 2023-10-23 14:00:00 2023-10-23 14:00:00 Outpatient DINO ZAMUDIO [id number] Wen Seybold 2023-10-23 00:00:00 2023-10-23 00:00:00 Outpatient MARIA ELENA ENRIQUEZ [id number] Wen Seybold 2023-10-17 10:30:00 2023-10-17 10:30:00 Outpatient NICOLASA DOUGHERTY WEN ADEN [id number] Wen [facility] 2023-10-09 09:15:00 2023-10-09 09:15:00 Outpatient SHAHBAZ VIRGEN WEN ADEN [id number] [facility] 2023-10-08 11:00:00 2023-10-08 11:00:00 Outpatient HUNDNick, DINO WEN ADEN [id number] [facility] [place] 2023-10-03 08:30:00 2023-10-03 08:30:00 Outpatient HUNDNick, DINO ADEN [id number] Wen [facility] 2023-10-02 00:00:00 2023-10-02 00:00:00 Outpatient PABLO ENRIQUEZAND WEN ADEN [id number] Wen [facility] 2023-09-25 11:15:00 2023-09-25 11:15:00 Outpatient LAB90 WEN ADEN [id number] Wen [facility] 2023-09-18 00:00:00 2023-09-18 00:00:00 Outpatient HUNDL, DINO ADEN [id number] Wen [place] 2023-09-17 00:00:00 2023-09-17 00:00:00 Outpatient HUNDNick, DINO WEN ADEN [id number] Wen [place] 2023-09-15 00:00:00 2023-09-15 00:00:00 Outpatient HUNDL[facility] [id number] [facility]14 00:[facility]:00 2023-09-14 00:00:00 Outpatient WEN ADEN [id number] Wen [facility]an 2023-09-12 08:15:00 2023-09-12 08:15:00 Outpatient LAB90 WEN ADEN [id number] Wen Seybold 2023-09-05 00:00:00 2023-09-05 00:00:00 Outpatient PREMARIA ELENA MENDES [id number] Wen Seybold 2023-08-31 13:40:00 2023-08-31 13:40:00 Outpatient TEODORO, REGIS [facility] [id number] [facility]23-[facility]-23 15:40:00 2023-08-23 15:40:00 Outpatient THOMASRADHA [facility] [id number] [facility] 2023-08-23 14:30:00 2023-08-23 14:30:00 Outpatient VF2 WEN ADEN [id number] [facility] 2023-08-13 10:40:00 2023-08-13 10:40:00 Outpatient DOUGHERTYNICOLASA HERRERA WEN ADEN [id number] [facility] 2023-07-13 12:45:00 2023-07-13 12:45:00 Outpatient WEN ADEN [id number] [facility] 2023-07-12 16:00:00 2023-07-12 16:00:00 Outpatient DINO ZAMUDIO [id number] [facility] 2023-07-11 00:00:00 2023-07-11 00:00:00 Outpatient DINO ZAMUDIO [id number] [facility] 2023-07-04 13:40:00 2023-07-04 13:40:00 Outpatient MELLISA CHANDLER [id number] [facility] 2023-07-04 13:40:00 2023-07-04 13:40:00 Outpatient TOMOGRAPHY, FBMDC WEN ADEN [id number] [facility] 2023-07-04 13:30:00 2023-07-04 13:30:00 Outpatient VF45 WEN ADEN [id number] [facility] 2023-07-04 11:05:00 2023-07-04 11:05:00 Outpatient LAB59 WEN ADEN [id number] [facility] 2023-07-04 10:45:00 2023-07-04 10:45:00 Outpatient WEN ADEN [id number] [facility] 2023-07-04 10:40:00 2023-07-04 10:40:00 Outpatient WEN ADEN [id number] [facility] 2023-07-04 10:15:00 2023-07-04 10:15:00 Outpatient DEANDREZELALEM [id number] [facility] 2023-06-28 11:00:00 2023-06-28 11:00:00 Outpatient MELLISA CHANDLER [facility] [id number] [facility] 2023-06-13 00:00:00 2023-06-13 00:00:00 Outpatient ROBB DINO [facility] [id number] [facility] 2023-06-05 00:00:00 2023-06-05 00:00:00 Outpatient ROBB DINO [facility] AD[facility] [id number] [facility] 2023-05-17 09:05:00 2023-05-17 09:05:00 Outpatient LAB90 [facility] AD[facility] [id number] [facility] 2023-04-17 00:00:00 2023-04-17 00:00:00 Outpatient GUILLAUME VAZQUEZ [id number] [facility] 2023-04-02 08:25:00 2023-04-02 08:25:00 Outpatient LAB90 [facility]EN ADEN [id number] [facility] 2023-04-02 00:00:00 2023-04-02 00:00:00 Outpatient [facility]EN ADEN [id number] [facility] 2023-03-28 13:00:00 2023-03-28 13:00:00 Outpatient GUILLAUME VAZQUEZ [id number] Wen Seybold 2023-02-28 10:20:00 2023-02-28 10:20:00 Outpatient WEN ADEN [id number] Wen Seybold 2023-02-28 10:00:00 2023-02-28 10:00:00 Outpatient ZELALEM GASTON [id number] Wen Seybold 2023-02-24 00:00:00 2023-02-24 00:00:00 Outpatient JUDITH URIBE [id number] Wen Seybold 2023-01-16 12:20:00 2023-01-16 12:20:00 Outpatient WEN ADEN [id number] Wen Seybold 2023-01-16 11:45:00 2023-01-16 11:45:00 Outpatient TRED45 WEN ADEN [id number] Wen [facility]an 2023-01-16 11:30:00 2023-01-16 11:30:00 Outpatient ZAYNAB SANTOS WEN ADEN [id number] Wen [facility] 2023-01-16 10:20:00 2023-01-16 10:20:00 Outpatient CHARLY ALYSSA WEN ADEN [id number] Wen [facility] 2022-12-29 00:00:00 2022-12-29 00:00:00 Outpatient DINO ZAMUDIO [id number] Wen [facility] 2022-12-28 10:55:00 2022-12-28 10:55:00 Outpatient LAB90 WEN ADEN [id number] Wen [facility] 2022-12-28 00:00:00 2022-12-28 00:00:00 Outpatient DINO ZAMUDIO [id number] [facility] 2022-12-21 14:00:00 2022-12-21 14:00:00 Outpatient TESTING, [facility] WEN ADEN [id number] Wen [facility]bro[facility]an 2022-12-21 09:15:00 2022-12-21 09:15:00 Outpatient JUDITH URIBE [id number] Wen Seybold 2022-12-14 00:00:00 2022-12-14 00:00:00 Outpatient DINO ZAMUDIO [id number] Wen Seybold 2022-12-13 00:00:00 2022-12-13 00:00:00 Outpatient GISELE ZEPEDA [id number] Wen Seybold 2022-12-11 11:00:00 2022-12-11 11:00:00 Outpatient LAB45 WEN ADEN [id number] Wen Seybold 2022-12-11 10:30:00 2022-12-11 10:30:00 Outpatient GISELE ZEPEDA [id number] Wen Seybold 2022-11-29 00:00:00 2022-11-29 00:00:00 Outpatient MARIA ELENA ENRIQUEZ WEN [id number] Wen Seybroldan 2022-11-22 11:00:00 2022-11-22 11:00:00 Outpatient ZELALEM GASTON WEN WEN [id number] Wen Seybold 2022-11-22 10:15:00 2022-11-22 10:15:00 Outpatient LAB59 WEN ADEN [id number] Wen Seybold 2022-11-13 00:00:00 2022-11-13 00:00:00 Outpatient WEN ADEN [id number] Wen Seybold 2022-11-13 00:00:00 2022-11-13 00:00:00 Outpatient WEN ADEN [id number] Wen Seybold 2022-11-09 09:05:00 2022-11-09 09:05:00 Outpatient LAB90 WEN ADEN [id number] Wen Seybold 2022-11-09 00:00:00 2022-11-09 00:00:00 Outpatient ROBB DINO WEN ADEN [id number] Wen Seybold 2022-11-08 00:00:00 2022-11-08 00:00:00 Outpatient MARIA ELENA ENRIQUEZ WEN ADEN [id number] Wen Seybold 2022-11-07 00:00:00 2022-11-07 00:00:00 Outpatient KWASINick DINO WEN ADEN [id number] Wen Seybold 2022-11-07 00:00:00 2022-11-07 00:00:00 Outpatient WEN ADEN [id number] Wen Seybold 2022-11-06 15:00:00 2022-11-06 15:00:00 Outpatient LAB90 WEN ADEN [id number] Wen Seybold 2022-11-06 00:00:00 2022-11-06 00:00:00 Outpatient ROBB DINO WEN ADEN [id number] Wen Seybold 2022-11-02 11:45:00 2022-11-02 11:45:00 Outpatient LAB90 WEN ADEN [id number] Wenchristopher Myrick 2022-11-02 10:30:00 2022-11-02 10:30:00 Outpatient DINO ZAMUDIO [id number] Wen Myrick 2022-11-01 00:00:00 2022-11-01 00:00:00 Outpatient DEVAN REYES [id number] Wen Myrick 2021-01-22 20:19:00 2021-01-23 09:50:00 Emergency Drever, Cynthia Jim Giorgi, Yamilka Mccabe, [facility] [id number] [facility] 2021-01-22 20:19:00 2021-01-22 20:19:00 Emergency X CHELSEACYNTHIA PERALTA [facility] ERT [id number] [facility] Results Test Description Test Time Test Comments Results Result Co mments Source Wen Myrick - ExternalCT ABDOMEN PELVIS W [id number] 13:40:251. ?No acute intra-abdominal or pelvic abnormality.2. ?Diverticulosis without CT evidence of diverticulitis.3. ?Moderate size sliding hiatal hernia.4. ?Hepatic steatosis. 5. ?Left adrenal nodule(0.8 cm).6. ?Small 3 mm nonobstructing left renal calculus Preliminary Report Dictated by Resident: Giorgio Ramos ?MD Nickolas., have reviewed this study and agree with the abovereport.CT ABDOMEN PELVIS W CONTRAST HISTORY: 65 years-old; Male; Indication for study: Abdominalabscess/infection suspected COMPARISON: None TECHNIQUE AND FINDINGS: Contiguous axial imaging from the level of the lungbases through the proximal thighs was performed after intravenous contrastadministration. Coronal and sa gittal reconstructions were obtained. ? FINDINGS: LOWER THORAX: The lung bases are clear. LIVER: Nofocal hepatic lesions. Normal contour. Diffuse hepatichypoattenuation. GALLBLADDER AND BILIARY TREE: No intra or extrahepatic biliary ductaldilation. SPLEEN: Unremarkable. PANCREAS: No ductal dilatation or masses. Mild fatty infiltration of thepancreas is noted. ADRENAL GLANDS: No adrenal lesions. A 0.8 cm left adrenal nodule is noted. KIDNEYS: No hydronephrosis or masses. Homogeneous and symmetricalenhancement. 3 mm calcification in the inferior pole of the left kidney. GI TRACT: Moderate sized sliding (type I closed hiatal hernia is noted. Nodilation or bowel wall thickening. ?The appendix is normal.(2:84).Noninflamed pancolonic diverticulosis PERITONEUM AND RETROPERITONEUM: No free air or fluid collection. LYMPH NODES: No intra-abdominal or pelvic lymph node enlargement. PELVIS/BLADDER: Bladder is fully distended with no wall thickening. VESSELS: Moderate atherosclerotic calcification of the aorta and itsprimary branches. BONES AND SOFT TISSUES: No suspicious lytic or sclerotic bony lesions. Mimb, Radiant Results Inft User - 01/23/2021 8:41 AM CDTCT ABDOMEN PELVIS W CONTRASTHISTORY: 65 years-old; Male; Indication for study: Abdominalabscess/infection suspected COMPARISON: NoneTE CHNIQUE AND FINDINGS: Contiguous axial imaging from the level of the lungbases through the proximalthighs was performed after intravenous contrastadministration. Coronal and sagittal reconstructionswere obtained. FINDINGS:LOWER THORAX: The lung bases are clear.LIVER: No focal hepatic lesions. Normal contour. Diffuse hepatichypoattenuation. GALLBLADDER AND BILIARY TREE: No intra or extrahepatic biliary ductaldilation. SPLEEN: Unremarkable.PANCREAS: No ductal dilatation or masses. Mild fatty infiltration of thepancreas is noted.ADRENAL GLANDS: No adrenal lesions. A 0.8 cm left adrenal nodule is noted.KIDNEYS: No hydronephrosis or masses. Homogeneous and symmetricalenhancement. 3 mm calcification in the inferior pole of the left kidney.GI TRACT: Moderate sized sliding (type I closed hiatalhernia is noted. Nodilation or bowel wall thickening. The appendix is normal.(2:84).Noninflamed pancolonic diverticulosisPERITONEUM AND RETROPERITONEUM: No free air or fluid collection.LYMPH NODES: No intra-abdominal or pelvic lymph node enlargement.PELVIS/BLADDER: Bladder is fully distended with no wall thickening.VESSELS: Moderate atherosclerotic calcification of the aorta and itsprimary branches.BONES AND SOFT TISSUES: No suspicious lytic or sclerotic bony lesions.IMPRESSION1. No acute intra-abdominal or pelvic abnormality.2. Diverticulosis without CT evidence of diverticulitis.3. Moderatesize sliding hiatal hernia.4. Hepatic steatosis. 5. Left adrenal nodule(0.8 cm).6. Small 3 mm nonobstructing left renal calculusPreliminary Report Dictated by Resident: Deandre Riggs, Giorgio Olmos MD., have reviewed this study and agree with the abovereport.[facility] CenterL[facility] Whole [id number] 06:57:03* Test Item Value Reference Range Interpretation Comme nts LACTIC ACID (test code = 8619422833) 1.57 mmol/L 0.50-2.20 Lab Interpretation (test cod e = 23030-2) Normal [facility]IS2021-04-04 06:53:48* Test Item Value Reference Range Interpretation Comme nts APPEARANCE (test code = 0625130664) Clear Clear COLOR (test code = 0241262600) Yellow Yellow PH (test code = 5859448499) 4.8-8.0 SP GRAVITY (test code = 0325881271) 1.003-1.030 GLU U QUAL (test code = 5418607840) Normal Normal BLOOD (test code = 8064352129) Negative Negative KETONES (test code = 7982664280) Negative Negative PROTEIN (test code = 2887-8) Negative Negative UROBILIN (test code = 6431584250) Normal Normal BILIRUBIN (test code = 3841944535) Negative Negative NITRITE (test code = 0792684930) Negative Negative LEUK LORENZO (test code = 8784302795) Negative Negative RBC/HPF (test code = 3479635729) See_Comment H [Automated [employer]] The system which generated this result transmitted reference range: 0 - 3 HPF. The reference range was not used to interpret this result as normal/abnormal. WBC/HPF (test code = 7562128324) See_Comment [Automated [employer]] The system which generated this result transmitted reference range: 0 - 5 HPF. The reference range was not used to interpret this result as normal/abnormal. BACTERIA (test code = 0586817276) Few Negative A Lab Interpretation (test code = 37604-0) Abnormal [facility] CenterCOVID[facility] (ID NOW RAPID TESTING)2021-01-23 03:36:54* Test Item Value Reference Range Interpretation Comme nts SARS-CoV-2 Rapid ID NOW (test code = 48271-8) Not Detected Not Detected MARVIN (test code = MARVIN) ID NOW COVID-19 As say is an isothermal nucleic acid amplification test intended for the qualitative detection of nucleic acid from SARS-CoV-2 viral RNA in nasopharyngeal (COAGULATING BATH OPERATOR) specimens. It is used under Emergency Use Authorization (EUA) by FDA. The limit of detection (LOD) of the assay is 125 Genome Equivalents/mL. A positive result is indicative of the presence of SARS-CoV-2 RNA. ?Clinical correlation with patient history and other diagnostic information is necessary to determine patient infection status. A negative (Not Detected) result does not preclude SARS-CoV-2 infection. In patients with clinical symptoms and other tests that are consistent with SARS-CoV-2 infection, negative results should be treated as presumptive negative and a new specimen should be tested with alternative PCR molecular test. Invalid: Please collect a new specimen for repeat patient testing if clinically indicated. Lab Interpretation (test code = 43728-1) Normal [facility] CenterCREATINE [id number] 03:18:09* Test Item Value Reference Range Interpretation Comme nts CK (test code = 8602799491) 35 U/L 33-194 Lab Interpretation (test cod e = 61738-8) Normal [facility] CenterPOPR GLUCOSE (AUTOMATED)2021-01-23 02:59:39* Test Item Value Reference Range Interpretation Comme nts POCT GLU (test code = 0338103501) 124 mg/dL 70-110 H Lab Interpretation (test cod e = 53590-2) Abnormal [facility] CenterLatnic Acid Whole [id number] 02:47:51* Test Item Value Reference Range Interpretation Comme nts LACTIC ACID (test code = 9842142269) 3.06 mmol/L 0.50-2.20 H Lab Interpretation (test cod e = 78018-5) Abnormal [facility] CenterBasi Metabolic Panel (NA, K, CL, CO2, GLUCOSE, BUN, CREATININE, CA)2021-01-23 02:18:47* Test Item Value Reference Range Interpretation Comme nts NA (test code = 1938246193) 135 mmol/L 135-145 K (test code = 5757522798) 3.7 mmol/L 3.5-5.0 CL (test code = 1494375814) 105 mmol/L 98-108 CO2 TOTAL (test code = 5568084960) 20 mmol/L 23-31 L AGAP (test code = 1062066137) 2-16 BUN (test code = 2350581651) 17 mg/dL 7-23 GLUCOSE (test code = 7354382148) 117 mg/dL 70-110 H CREATININE (test code = 5687111811) 1.58 mg/dL 0.60-1.25 H CALCIUM (test code = 8527085732) 9.2 mg/dL 8.6-10.6 eGFR (test code = 8616284029) mL/min/1.73m2 MARVIN (test code = MARVIN) Association of Glomerular Filtration Rate (GFR) and Staging of Kidney Disease* + --+ --+ ------+| GFR (mL/min/1.73 m2) ?| With Kidney Damage ?| ?Without Kidney Damage+ --------+ --------+ +| ?>90 ?| ?Stage one ?| ? Normal ?+ ---+ ---+ -------+| ?60-89 ?| ?Stage two ?| ? Decreased GFR ? + --+ --+ ------+| ?30-59 ?| ?Stage three ?| ? Stage three ? + --+ --+ ------+| ?15-29 ?| ?Stage four ? | ? Stage four ?+ ---+ ---+ -------+| ?<15 (or dialysis) ? ?| ?Stage five ? | ? Stage five ?+ ---+ ---+ -------+ *Each stage assumes the associated GFR level has been in effect for at least three months. ?Stages 1 to 5, with or without kidney disease, indicate chronic kidney disease. Notes: Determination of stages one and two (with eGFR >59mL/min/1.73 m2) requires estimation of kidney damage for at least three months as defined by structural or functional abnormalities of the kidney, manifested by either:Pathological abnormalities or Markers of kidney damage (including abnormalities in the composition of the blood or urine or abnormalities in imaging tests). Lab Interpretation (test code = 12874-4) Abnormal [facility] CenterTrlean [id number] 02:09:45* Test Item Value Reference Range Interpretation Comme nts TROPONIN I (test code = 6530331418) 0.004 ng/mL See_Comment [Automated message] The system which generated this result transmitted reference range: <=0.034. The reference range was not used to interpret this result as normal/abnormal. MARVIN (test code = MARVIN) Equal or Less than 0.034 ng/ml---Normal ?Note: Cardiac troponin begins to rise 3-4 hours after the onset of ischemia. Repeat in 4-6 hours if the sample was drawn within 3-4 hours of the onset of the symptom and found normal. Between 0.035 and 0.120 ng/mL--- Borderline. Questionable myocardial injury or necrosis ? ?Note: Serial measurement may be necessary to confirm or exclude the diagnosis of myocardial injury or necrosis; Clinical correlation (symptoms, EKGs, imaging studies, and others) required; Repeat in 4-6 hours if clinically indicated. ? Equal or Higher than 0.121 ng/mL---Abnormal. Myocardial Injury or Necrosis Likely ? Biotin has been reported to cause a negative bias, interpret results relative to patient's use of biotin. ? Lab Interpretation (test code = 34920-7) Normal [facility] CenterN-TERMINAL [id number] 02:06:44* Test Item Value Reference Range Interpretation Comme nts NT-proBNP (test code = 4688945901) 208 pg/mL See_Comment H [Automated message] The system which generated this result transmitted reference range: <=125. The reference range was not used to interpret this result as normal/abnormal. MARVIN (test code = MARVIN) Biotin has been reported to cause a negative bias, interpret results relative to patient's use of biotin. Lab Interpretation (test code = 07381-4) Abnormal [facility] CenterHepatic Function Panel (ALB, T.PRO, BILI T, BU/BC, ALT, AST, ALK PHOS)2021-01-23 02:05:23* Test Item Value Reference Range Interpretation Comme nts TOTAL BILI (test code = 2567179265) 0.8 mg/dL 0.1-1.1 BILI UNCON (test code = 7365055047) 0.3 mg/dL 0.1-1.1 BILI CONJ (test code = 9632756949) 0.0 mg/dL 0.0-0.3 T PROTEIN (test code = 6407193119) 6.5 g/dL 6.3-8.2 ALBUMIN (test code = 9776786240) 4.0 g/dL 3.5-5.0 ALK PHOS (test code = 8671581453) 60 U/L 34-122 ALTv (test code = 1742-6) 48 U/L 5-50 AST(SGOT) (test code = 8104452219) 43 U/L 13-40 H Lab Interpretation (test cod e = 50832-3) [id number]:05:08* Test Item Value Reference Range Interpretation Comme nts LIPASE (test code = 9326052317) 448 U/L 0-220 H Lab Interpretation (test cod e = 68803-7) [facility] [id number] 01:45:05* Test Item Value Reference Range Interpretation Comme nts WBC (test code = 6690-2) See_Comment [Automated messa ge] The system which generated this result transmitted reference range: 4.20 - 10.70 10*3/?L. The reference range was not used to interpret this result as normal/abnormal. RBC (test code = 789-8) See_Comment L [Automated messa ge] The system which generated this result transmitted reference range: 4.26 - 5.52 10*6/?L. The reference range was not used to interpret this result as normal/abnormal. HGB (test code = 718-7) 14.3 g/dL 12.2-16.4 HCT (test code = 4544-3) 40.4 % 38.4-49.3 MCV (test code = 787-2) 96.9 fL 81.7-95.6 H MCH (test code = 785-6) 34.3 pg 26.1-32.7 H MCHC (test code = 786-4) 35.4 g/dL 31.2-35.0 H RDW-SD (test code = 57326-7) 43.0 fL 38.5-51.6 RDW-CV (test code = 788-0) 12.3 % 12.1-15.4 PLT (test code = 777-3) See_Comment L [Automated messa ge] The system which generated this result transmitted reference range: 150 - 328 10*3/?L. The reference range was not used to interpret this result as normal/abnormal. MPV (test code = 44764-9) 9.1 fL 9.8-13.0 L NRBC/100 WBC (test code = 7340680919) See_Comment [Automated [employer] ssage] The system which generated this result transmitted reference range: 0.0 - 10.0 /100 WBCs. The reference range was not used to interpret this result as normal/abnormal. NRBC x10^3 (test code = 2531203358) <0.01 See_Comment [Automated messa ge] The system which generated this result transmitted reference range: 10*3/?L. The reference range was not used to interpret this result as normal/abnormal. GRAN MAT (NEUT) % (test code = 770-8) 57.5 % IMM GRAN % (test code = 1959002826) 0.30 % LYMPH % (test code = 736-9) 29.9 % MONO % (test code = 5905-5) 9.7 % EOS % (test code = 713-8) 2.0 % BASO % (test code = 706-2) 0.6 % GRAN MAT x10^3(ANC) (test code = 1984730026) 3.97 10*3/uL 1.99-6.95 IMM GRAN x10^3 (test code = 9335728252) <0.03 0.00-0.06 LYMPH x10^3 (test code = 731-0) 2.06 10*3/uL 1.09-3.23 MONO x10^3 (test code = 742-7) 0.67 10*3/uL 0.36-1.02 EOS x10^3 (test code = 711-2) 0.14 10*3/uL 0.06-0.53 BASO x10^3 (test code = 704-7) 0.04 10*3/uL 0.01-0.09 Lab Interpretation (test code = 57732-1) Abnormal [facility] Notes Date/Time Note Provider Source 2024-03-14 13:17:08 8867-88-41L24:17:08F ormatting of this note is different from the original.Chief ComplaintPatient presents withDigit PainPt complains of toe nail fungus on his right foot great toe. 88598-3Rnjwb NzjhKY3748-00-51G69:37:40Nurse NoteTXT1.2.840.300948.1.13.131.2.7 .2.519552|[id number] for patient wymm65786-7Zxnoh NoteLNNARRATIVEFormatted C-CDA narrative text[address][id number] QFA0258-82-14L70:37:401.2.840.1143 50.1.72.3.15|1.2.840.293843.1.13.1 31.2.7.2.727879_[id number] [facility] 2024-02-27 14:01:52 9458-13-86Z55:01:52F ormatting of this note is different from the original.Chief ComplaintPatient presents withJoselynkin Harpreet Brunson 78395-7Ifzap GqojBC9296-11-93F31:35:36Nurse NoteTXT1.2.840.700596.1.13.131.2.7 .2.991301|[id number] for patient paju02137-6Nodud NoteLNNARRATIVEFormatted C-CDA narrative [address][id number] YYQ9216-36-34H09:35:361.2.840.1143 50.1.72.3.15|1.2.840.037055.1.13.1 31.2.7.2.727879_[id number] [facility] 2024-02-27 10:16:59 7764-56-07S87:16:59F ormatting of this note is different from the original.Chief ComplaintPatient presents withFollow-Up Visit16 weekBreKeny Hernandesectronically signed by Olive Romero LVN at 02/27/2024 11:03 AM KOS94015-7Jnrin MfpoKY7522-81-52B34:03:13Nurse NoteTXT1.2.840.691570.1.13.131.2.7 .2.850048|[id number] for patient cdyl30473-6Mrnjd NoteLNNARRATIVEFormatted C-CDA narrative [id number] IMV1621-63-42A62:03:131.2.840.1143 50.1.72.3.15|1.2.840.348815.1.13.1 31.2.7.2.727879_[id number] [facility] 2023-11-29 09:57:34 6036-13-45O55:57:34F ormatting of this note is different from the original.Chief ComplaintPatient presents withPhysicalPatient [place] [address]-4Ygatr WbkhTD6053-64-58A77:02:06Nurse NoteTXT1.2.840.478546.1.13.131.2.7 .2.528520|[id number] for patient qwlf43432-3Knbzz NoteLNNARRATIVEFormatted C-CDA narrative [id number] LZB8300-81-07A65:02:061.2.840.1143 50.1.72.3.15|1.2.840.730272.1.13.1 31.2.7.2.727879_[id number] [facility] 2023-11-07 10:31:07 4132-43-00E47:31:07F ormatting of this note is different from the original.Chief ComplaintPatient presents withRheumatoid ArthritisPatient is present today for 4 month follow-[place] [address]-5Uxizw CagkZN6777-34-11Q14:32:26Nurse NoteTXT1.2.840.187758.1.13.131.2.7 .2.298581|[id number] for patient tqrx10359-1Myuwt NoteLNNARRATIVEFormatted C-CDA narrative textDepartment of Veterans Affairs [facility] [facility].[id number] KLP6968-37-59U61:32:261.2.840.1143 50.1.72.3.15|1.2.840.482059.1.13.1 31.2.7.2.727879_[id number] [facility] 2023-10-23 13:57:24 3045-14-28N63:57:24F ormatting of this note is different from the original.Chief ComplaintPatient presents withHospital F/UFollow up from [facility] for chest pains/pressure. EKG and labs were negative. No symptoms since. Needing a referral to cardiology for a stress test. He has seen a Dr. Santos within [place] [address]-1Hbmes OhcvGU8422-54-91K04:58:36Nurse NoteTXT1.2.840.936485.1.13.131.2.7 .2.699007|[id number] for patient llcv67035-9Lkakd NoteLNNARRATIVEFormatted C-CDA narrative [id number] Hurst MA [id number] YJC1356-20-16F38:58:361.2.840.1143 50.1.72.3.15|1.2.840.022257.1.13.1 31.2.7.2.727879_[id number] Komal Gramajo MA [facility] 2023-07-04 11:15:43 7508-40-03D24:15:43F ormatting of this note might be different from the original.[place] [address]-6Wjquiksd hikgAS2402-37-91S25:15:43Progress noteTXT1.2.840.066573.1.13.131.2.7 .2.548669|[id number] for patient bgux89398-3JbbvMWLXSPANHCKAxoyra-X[id number] FKN2484-16-43K86:15:431.2.840.1143 50.1.72.3.15|1.2.840.845747.1.13.1 31.2.7.2.727879_[id number] [facility] 2023-07-04 09:49:55 6502-20-13N59:49:55F ormatting of this note is different from the original.Chief Complaint Patient presents with Follow-Up Visit Keny Lathamectronically signed by Hernesto Cardona LVN at 07/04/2023 9:50 AM LBH85603-9Iwfrp CpofUG0201-54-06A53:50:12Nurse NoteTXT1.2.840.992103.1.13.131.2.7 .2.784342|[id number] for patient hljh00883-1Uixnb NoteLNDepartment of Veterans Affairs [facility] [facility] [id number] SYR9272-56-72S72:50:121.2.840.1143 50.1.72.3.15|1.2.840.250252.1.13.1 31.2.7.2.727879_[id number] [facility]"
[2024-04-14] MEDS ORDERED: NA CHLORIDE 0.9% 1,000 ML ONE (10:16)
[2024-04-14 10:36] LABS: Absolute Basophils 0.1 K/uL (0-0.5); Absolute Eosinophils 0.1 K/uL (0-0.5); Absolute Lymphocytes (CBC) 1.7 K/uL (0.7-4.9); Absolute Monocytes 0.7 K/uL (0.1-1.3); Absolute Neutrophil 5.1 K/uL (1.8-8.0); Basophils % 1.1 % (0-1.3); Eosinophils % 1.5 % (0-4.4); Hematocrit 24.3 % (39.6-49.0); Hemoglobin 8.5 g/dL (13.6-17.9); Lymphocytes % 21.7 % (15.3-44.8); MCH 34.2 pg (27.0-35.0); MCHC 34.8 g/dL (32.0-36.0); MCV 98.2 fL (80-100); MPV 7.1 fL (7.6-11.3); Monocytes % 9.3 % (3.3-12.3); Neutrophils % 66.4 % (41.7-73.7); Platelets 304 thou/uL (152-406); RBC Red Blood Cell Count 2.47 M/uL (4.33-5.43); Red Cell Distribution Width 13.2 % (12.1-15.2)
[2024-04-14 10:52] LABS: Albumin 2.5 g/dL (3.4-5.0); Albumin/Globulin Ratio 0.7 (1.1-1.8); Anion Gap 6.8 mEq/L (5.0-15.0); Bilirubin Total 0.4 mg/dL (0.2-1.0); Globulin 3.6 g/dL (2.3-3.5); Potassium 3.8 mEq/L (3.5-5.1); Protein, Total 6.1 g/dL (6.4-8.2)
--- NOTE | 2024-04-14 12:09 | RAD REPORT ---
EXAM DESCRIPTION: CT - Pelvis Angio - 04/14/2024 10:44 am CLINICAL HISTORY: pain COMPARISON: Abdomen Angio dated 04/14/2024; Abdomen Pelvis W Contrast dated 04/12/2024 TECHNIQUE: Thin axial CT images of the abdomen and pelvis were obtained during administration of 100 mL Isovue 370 IV contrast. Sagittal and coronal reconstructions as well as maximal intensity projecti on reconstruction were generated and reviewed per an aortic angiography protocol. All CT scans are performed using dose optimization technique as appropriate and may include automated exposure control or mA/KV adjustment according to patient size. FINDINGS: Lung bases are unremarkable. Abdominal aorta is normal in caliber. Moderate atherosclerotic calcifications throughout. Mild focal narrowing of the proximal left common iliac artery. multifocal at least moderate narrowing of the int ernal iliac arteries bilaterally. Celiac, SMA and renal arteries show no suspicious findings. External iliac arteries are unremarkable. Mild partial improvement of inflammatory changes involving the proximal descending colon, related to known acute diverticulitis. No abnormal fluid collections. Stable right adrenal 11 mm nodule. Diffuse hepatic steatosis. Nonobstructing left lower renal pole 4 mm calculus, stable. Solid abdominal visce ra and bowel show no other significant findings. No mass or abnormal lymphadenopathy. IMPRESSION: No acute abnormalities of the aorta. Moderate atherosclerotic calcifications, and multif ocal narrowings of the proximal left common carotid artery and bilateral internal iliac arteries. Mild partial improvement of inflammatory changes involving the proximal descending colon related to k nown acute diverticulitis.
--- NOTE | 2024-04-14 12:40 | ER ---
Nurse's Notes [facility] Name: Robert Key Age: 68 yrs Sex: Male : 1955 Arrival Date: 04/14/2024 Time: 09:21 Bed 19 Private MD: Diagnosis: Diverticular bleed Presentation: 04/14 09:30 Chief complaint: Patient states: he is having continued weakness since his visit ap3 Sunday. patient reports continued bleeding in stool. Coronavirus screen: At this time, the client does not indicate any symptoms associated with coronavirus-19. Ebola Screen: No symptoms or risks identified at this time. No acute neurological deficit is noted. Initial Sepsis Screen: Does the patient meet any 2 criteria? No. Patient's initial sepsis screen is negative. Does the patient have a suspected source of infection? No. Patient's initial sepsis screen is negative. Risk Assessment: Do you want to hurt yourself or someone else? Patient reports no desire to harm self or others. Onset of symptoms was April 11, 2024. 09:30 Method Of Arrival: Ambulatory ap3 09:30 Acuity: JULIO CESAR 3 ap3 Triage Assessment: : General: Appears in no apparent distress. ill, Behavior is calm, cooperative, ap3 appropriate for age, Reports fatigue for. Pain: Denies pain. Neuro: Level of Consciousness is awake, alert, obeys commands, Oriented to person, place, time, situation, Appropriate for age Reports weakness. Cardiovascular: Patient's skin is warm and dry. Respiratory: Airway is patent Respiratory effort is even, unlabored, Respiratory pattern is regular, symmetrical. GI: Reports rectal bleeding, bloody stool. Historical: - Allergies: : NKDA; ap3 - PMHx: : GERD; Hypertension; Hypertensive disorder; RA; ap3 - Immunization history:: Client reports receiving the 2nd dose of the Covid vaccine. - Infectious Disease History:: Denies. - Social history:: Smoking status: Patient denies any tobacco usage or history of. - Family history:: not pertinent. Screenin:32 [facility] ED Fall Risk Assessment (Adult) History of falling in the last 3 months, ap3 including since admission No falls in past 3 months (0 pts) Confusion or Disorientation No (0 pts) Intoxicated or Sedated No (0 pts) Impaired Gait No (0 pts) Mobility Assist Device Used No (0 pt) Altered Elimination No (0 pt) Score/Fall Risk Level 0 - 2 = Low Risk Oriented to surroundings, Maintained a safe environment, Educated pt \T\ family on fall prevention, incl call for assistance when getting out of bed, Assessed \T\ reinforced patient's understanding of fall precautions, Provided non-skid footwear, Hourly rounding (assess needs \T\ fall precautionary measures) done, Used ambulatory aids as needed (educated on \T\ assisted with), Used gait belt as appropriate. Abuse screen: Denies threats or abuse. Nutritional screening: No deficits noted. Tuberculosis screening: No symptoms or risk factors identified. Assessment: 10:35 General: Appears in no apparent distress. comfortable, well groomed, Behavior is calm, ph cooperative, appropriate for age, Denies fever. Pain: Denies pain. Neuro: Level of Consciousness is awake, alert, obeys commands, Oriented to person, place, time, situation, Reports weakness. Cardiovascular: Reports fatigue, lightheadedness, shortness of breath, Capillary refill < 3 seconds in bilateral fingers Patient's skin is warm and dry. Rhythm is regular. Respiratory: Airway is patent Respiratory effort is even, unlabored, Respiratory pattern is regular, symmetrical. GI: Reports rectal bleeding, bloody stool, Patient currently denies abdominal pain, nausea, vomiting. Derm: Skin is dry, Skin is pale, Skin temperature is warm. Musculoskeletal: Circulation, motion, and sensation intact. Range of motion: intact in all extremities. Vital Signs: 09:30 BP 102 / 62; Pulse 83; Resp 18; Temp 97.5; Pulse Ox 100% on R/A; Weight 92.99 kg; ap3 Height 5 ft. 7 in. ; 10:36 BP 96 / 58; Pulse 78; Resp 18; Pulse Ox 99% on R/A; ph 11:45 BP 94 / 62; Pulse 87; Resp 18; Pulse Ox 99% on R/A; ph 12:00 BP 96 / 58; Pulse 70; Resp 16; Pulse Ox 100% on R/A; me1 13:00 BP 100 / 70; Pulse 69; Resp 15; Pulse Ox 100% on R/A; me1 14:00 BP 112 / 65; Pulse 69; Resp 16; Pulse Ox 100% on R/A; me1 15:00 BP 90 / 57; Pulse 70; Resp 15; Pulse Ox 100% on R/A; me1 09:30 Body Mass Index 32.11 (92.99 kg, 170.18 cm) ap3 ED Course: 09:23 Patient arrived in ED. rg4 09:24 Sai Grijalva MD is Attending Physician. rt 09:31 Triage completed. ap3 09:33 Arm band placed on left wrist. ap3 10:05 Client placed on continuous cardiac and pulse oximetry monitoring. NIBP monitoring ap3 applied. manager monitoring on. Pulse ox on. NIBP on. 10:13 Sera Deal, RN is Primary Nurse. ph 10:25 Initial lab(s) drawn, by me, sent to lab. T\T\S collected, blood band applied to patient. ph Inserted saline lock: 20 gauge in right antecubital area, using aseptic technique. Blood collected. 10:34 Patient has correct armband on for positive identification. Bed in low position. Call ph light in reach. Side rails up X 1. Door closed. Noise minimized. Warm blanket given. Pillow given. 10:34 Type And Screen Sent. ph 10:34 Lipase Sent. ph 10:34 CMP Sent. ph 10:34 CBC with Diff Sent. ph 10:35 No provider procedures requiring assistance completed. ph 10:36 Patient moved to [place] via wheelchair. ph 10:46 Abdomen Angio In Process Unspecified. EDMS 10:46 Pelvis Angio In Process Unspecified. EDMS 12:32 Provided Education on: POC. Verbalized understanding.. me1 12:46 initiated transfer to [facility] or [facility]. bd 13:34 pt accepted in transfer to [facility] rm [address] Leighann Mora admin approval bd given by Edgardo Townsend. 15:31 Patient transferred, IV remains in place. me1 Administered Medications: 10:30 Drug: NS 0.9% IV 1000 ml IV at 1 bolus Per protocol; 1000 mL bolus Route: IV; Rate: 1 ph bolus; Site: right antecubital; 13:23 Follow up: Response: No adverse reaction; IV Status: Completed infusion; IV Intake: me1 1000ml Medication: 12:32 VIS not applicable for this client. me1 Intake: 13:23 IV: 1000ml; Total: 1000ml. me1 Outcome: 12:39 ER care complete, transfer ordered by . rt 14:47 Transferred by ground EMS to [facility], [facility], Transfer form completed. me1 Note: Report called to ARTHUR Eaton 15:31 Condition: stable me1 15:31 Instructed on the need for transfer, 15:32 Patient left the ED. me1 Signatures: Dispatcher [employer] EDLinda Hutchison Patricia, RN RN Tomasa Lozano 4 Susan Tarango RN RN ap3 Sai Grijalva MD MD rt Salud Vazquez RN RN me1
--- NOTE | 2024-04-14 12:40 | EDPHYS ---
Physician Documentation [facility] Name: Robert Key Age: 68 yrs Sex: Male : 1955 Arrival Date: 04/14/2024 Time: 09:21 Bed 19 Private MD: ED Physician Sai Grijalva HPI: 04/14 10:09 This 68 yrs old Male presents to ER via Ambulatory with complaints of Weakness. rt 10:09 Patient was seen in the ED 2 days ago for rectal bleeding, diagnosed with rt diverticulitis, he elected to go home on oral antibiotics. Patient had continued bleeding, that is unchanged. States that he is weaker than before. Denies any pain, other acute complaints, symptoms are moderate in severity, no other aggravating or alleviating factors.. Historical: - Allergies: : NKDA; ap3 - PMHx: : GERD; Hypertension; Hypertensive disorder; RA; ap3 - Immunization history:: Client reports receiving the 2nd dose of the Covid vaccine. - Infectious Disease History:: Denies. - Social history:: Smoking status: Patient denies any tobacco usage or history of. - Family history:: not pertinent. ROS: 10:09 Constitutional: Negative for fever, chills, and weight loss, Cardiovascular: Negative rt for chest pain, palpitations, and edema, Respiratory: Negative for shortness of breath, cough, wheezing, and pleuritic chest pain, MS/Extremity: Negative for injury and deformity, Skin: Negative for injury, rash, and discoloration, Psych: Negative for depression, anxiety, suicide ideation, homicidal ideation, and hallucinations, 10:09 Abdomen/GI: Positive for rectal bleeding, Negative for abdominal pain, 10:09 Neuro: Positive for weakness, Negative for altered mental status, Exam: 10:10 Constitutional: This is a well developed, well nourished patient who is awake, alert, rt and in no acute distress. Head/Face: Normocephalic, atraumatic. Chest/axilla: Normal chest wall appearance and motion. Nontender with no deformity. No lesions are appreciated. Cardiovascular: Regular rate and rhythm with a normal S1 and S2. No gallops, murmurs, or rubs. Normal PMI, no JVD. No pulse deficits. Respiratory: Lungs have equal breath sounds bilaterally, clear to auscultation and percussion. No rales, rhonchi or wheezes noted. No increased work of breathing, no retractions or nasal flaring. Abdomen/GI: Soft, non-tender, with normal bowel sounds. No distension or tympany. No guarding or rebound. No evidence of tenderness throughout. Skin: Warm, dry with normal turgor. Normal color with no rashes, no lesions, and no evidence of cellulitis. MS/ Extremity: Pulses equal, no cyanosis. Neurovascular intact. Full, normal range of motion. Neuro: Awake and alert, GCS 15, oriented to person, place, time, and situation. Cranial nerves II-XII grossly intact. Motor strength 5/5 in all extremities. Sensory grossly intact. Cerebellar exam normal. Normal gait. Vital Signs: 09:30 BP 102 / 62; Pulse 83; Resp 18; Temp 97.5; Pulse Ox 100% on R/A; Weight 92.99 kg; ap3 Height 5 ft. 7 in. ; 10:36 BP 96 / 58; Pulse 78; Resp 18; Pulse Ox 99% on R/A; ph 11:45 BP 94 / 62; Pulse 87; Resp 18; Pulse Ox 99% on R/A; ph 12:00 BP 96 / 58; Pulse 70; Resp 16; Pulse Ox 100% on R/A; me1 13:00 BP 100 / 70; Pulse 69; Resp 15; Pulse Ox 100% on R/A; me1 14:00 BP 112 / 65; Pulse 69; Resp 16; Pulse Ox 100% on R/A; me1 15:00 BP 90 / 57; Pulse 70; Resp 15; Pulse Ox 100% on R/A; me1 09:30 Body Mass Index 32.11 (92.99 kg, 170.18 cm) ap3 MDM: 09:39 Patient medically screened. rt 17:41 Data reviewed: vital signs, nurses notes, lab test result(s), radiologic studies. rt Consideration of Admission/Observation Escalation of care including admission/observation considered. Patient requires transfer for GI evaluation. Management of patient was discussed with the following: Hospitalist: Discussed with accepting hospitalist at [facility]. Independent interpretation of the following test(s) in the Emergency Department CT Scan: My interpretation is No bowel obstruction seen on interpretation of CT scan images. Care significantly affected by the following chronic conditions: Hypertension. Counseling: I had a detailed discussion with the patient and/or guardian regarding the historical points, exam findings, and any diagnostic results supporting the discharge/admit diagnosis, lab results, radiology results, the need to transfer to another facility. Response to treatment: the patient's symptoms have mildly improved after treatment. 04/14 09:44 Order name: CBC with Diff; Complete Time: 12:10 rt 04/14 09:44 Order name: CMP; Complete Time: 12:10 rt 04/14 09:44 Order name: Lipase; Complete Time: 12:10 rt 04/14 09:44 Order name: Type And Screen; Complete Time: 13:18 rt 04/14 10:48 Order name: ABO/RH no charge; Complete Time: 12:10 EDMS 04/14 09:56 Order name: Abdomen Angio; Complete Time: 12:10 EDMS 04/14 10:27 Order name: Pelvis Angio; Complete Time: 12:10 EDMS 04/14 09:44 Order name: IV Saline Lock; Complete Time: 10:34 rt 04/14 09:44 Order name: Labs collected and sent; Complete Time: 10:34 rt Administered Medications: 10:30 Drug: NS 0.9% IV 1000 ml IV at 1 bolus Per protocol; 1000 mL bolus Route: IV; Rate: 1 ph bolus; Site: right antecubital; 13:23 Follow up: Response: No adverse reaction; IV Status: Completed infusion; IV Intake: me1 1000ml Disposition Summary: 04/14/24 12:39 Transfer Ordered Notes: Transfer Location: [facility] rt Reason: Higher level of care rt Condition: Stable rt Problem: new rt Symptoms: are unchanged rt Accepting Physician: (04/14/24 15:32) me1 Diagnosis - Diverticular bleed rt Forms: - Medication Reconciliation Form rt - SBAR form rt Signatures: Dispatcher [employer] Sera Ahuaj RN RN ph Prokisch, Amanda, RN RN arvin3 Sai Grijalva MD MD rt Salud Vazquez RN RN me1 Corrections: (The following items were deleted from the chart) 09:56 09:44 Abdomen Pelvis W Con+CT.RAD.BRZ ordered. [facility] EDAL 15:32 12:39 rt me1
[2024-04-14 22:51] VITALS: BP 90/57; TEMP 97.5; O2SAT 100
== END 2024-04-14 15:32 | disposition short-term general hospital (02) ==
LOC: ER 09:21
DX: K57.21 Diverticulitis of large intestine with perforation and abscess with bleeding (principal)
CPT/HCPCS: 85025; 36415; 86900; 86850; 86901; 83690; 80053; 72191; 74175; Q9967; J7030